=== PATIENT | female | born 1970 | race American Indian/Alaskan Native ===

== ENCOUNTER 2016-10-24 05:33 | Inpatient (IN) | payer MEDICAID, OTHER ==
[2016-10-24] MEDS ORDERED: Albuterol/Ipratropium 3.0-0.5 MG/3 ML Neb Soln NEB ONE (05:40)
--- NOTE | 2016-10-24 05:49 | EDM.PDOC ---
ED HPI GENERAL MEDICAL PROBLEM - General Chief Complaint: Respiratory Problem Stated Complaint: IN BY AMBULANCE Time Seen by Provider: 10/24/16 05:47 Source of Information: Reports: Patient History Limitations: Reports: No Limitations - History of Present Illness INITIAL COMMENTS - FREE TEXT/NARRATIVE: c/o SOB emanuel developed chest pain en route to ER. h/o asthma tried neb at home but not helping. quit smoking 2 months ago. Left Chest Pain Score (Numeric/FACES): 8 - Related Data Allergies Allergy/AdvReac Type Severity Reaction Status Date / Time Penicillins Allergy Unknown Rash Verified 10/24/16 06:07 codeine Allergy Vomiting Verified 10/24/16 06:07 ibuprofen Allergy Rash Verified 10/24/16 06:07 Home Meds: Home Meds Albuterol Sulfate 2.5 mg IH Q4HR PRN 03/15/14 [History] Lisinopril 20 mg PO DAILY 03/15/14 [History] Omeprazole 20 mg PO BID 03/15/14 [History] metFORMIN [Glucophage] 500 mg PO BID 03/15/14 [History] Aspirin [Ecotrin] 81 mg PO DAILY 09/09/15 [History] Calcium Carbonate [Calcium] 500 mg PO DAILY 09/09/15 [History] Gabapentin [Neurontin] 300 mg PO TID 09/09/15 [History] Montelukast Sodium [Singulair] 10 mg PO DAILY 09/09/15 [History] [place]-3 Fatty Acids [Fish Oil] 300 mg PO DAILY 10/24/16 [History] Past Medical History HEENT History: Reports: Allergic Rhinitis Cardiovascular History: Reports: Hypertension Respiratory History: Reports: Asthma Other Respiratory History: seasonal allergies [employer] History: Reports: Musculoskeletal History: Reports: Fibromyalgia, RA Other Musculoskeletal History: carpal tunnel Neurological History: Reports: Neuropathy, Diabetic Psychiatric History: Reports: None Endocrine/Metabolic History: Reports: Diabetes, Type I Hematologic History: Reports: None Immunologic History: Reports: None - Infectious Disease History Infectious Disease History: Reports: Chicken Pox - Past Surgical History Female Surgical History: Reports: Section Musculoskeletal Surgical History: Reports: Carpal Tunnel Social & Family History - Family History Family Medical History: Noncontributory - Tobacco Use Smoking Status *Q: Never Smoker Years of Tobacco use: 1 Packs/Tins Daily: 0.1 - Caffeine Use Caffeine Use: Reports: Coffee, Soda - Alcohol Use Days Per Week of Alcohol Use: 0 - Recreational Drug Use Recreational Drug Use: No - Living Situation & Occupation Living situation: Reports: , with Family Occupation: Employed ED ROS GENERAL - Review of Systems Review Of Systems: ROS reveals no pertinent complaints other than HPI. ED EXAM, GENERAL - Physical Exam Exam: See Below Exam Limited By: No Limitations General Appearance: Alert, WD/WN, No Apparent Distress, Mild Distress, Other ( cough spasms) Ears: Hearing Grossly Normal Throat/Mouth: Normal Voice, No Airway Compromise Head: Atraumatic Neck: Non-Tender, Full Range of Motion Respiratory/Chest: No Respiratory Distress, No Accessory Muscle Use, Decreased Breath Sounds, Rhonchi, Wheezing. No: Retractions, Splinting Cardiovascular: Regular Rate, Rhythm GI/Abdominal: Soft, Non-Tender Neurological: Alert, Oriented, Normal Cognition, Normal Gait, No Motor/Sensory Deficits Psychiatric: Normal Affect, Normal Mood Skin Exam: Warm, Dry Lymphatic: No Adenopathy Course - Vital Signs Last Recorded V/S: Last Vital Signs Temp 37.6 C 10/24/16 05:37 Pulse 121 H 10/24/16 05:37 Resp 36 H 10/24/16 05:37 BP 150/94 H 10/24/16 05:37 Pulse Ox 99 10/24/16 05:37 - Orders/Labs/Meds Orders: Active Orders 24 hr Category Date Time Status EKG Documentation Completion [RC] STAT Care 10/24/16 05:40 Active RT Aerosol Therapy [RC] ASDIRECTED Care 10/24/16 05:40 Active Chest 1V Frontal [CR] Urgent Exams 10/24/16 05:40 Taken CULTURE BLOOD [BC] Stat Lab 10/24/16 05:50 Received UA W/MICROSCOPIC [URIN] Stat Lab 10/24/16 06:54 Uncollected Levofloxacin/Dextrose 5%-Water [Levaquin in D5W 500 MG/ Med 10/24/16 06:53 Ordered 100 ML] 500 mg Premix Bag 1 bag IV ONETIME Medication Orders Levofloxacin/Dextrose 500 mg/ (Premix) 100 mls @ 100 mls/hr IV ONETIME ONE Stop: 10/24/16 07:52 Labs: Laboratory Tests 10/24/16 10/24/16 10/24/16 Range/Units 05:50 05:50 05:50 WBC 29.0 H* (5.0-10.0) 10^3/uL RBC 4.77 (4.2-5.4) 10^6/uL Hgb 12.2 (12.0-16.0) g/dL Hct 38.0 (37.0-47.0) % MCV 79.7 L (80-100) fL MCH 25.6 L (27.0-34.0) pg MCHC 32.1 L (33.0-35.0) g/dL Plt Count 245 (150-450) 10^3/uL Neut % (Auto) 86.2 H (42.2-75.2) % Lymph % (Auto) 5.9 L (20.5-50.1) % [place] % (Auto) 7.8 (2-8) % Eos % (Auto) 0.1 L (1.0-3.0) % Baso % (Auto) 0.0 (0.0-1.0) % Add Manual Diff Yes Neutrophils % (Manual) 85 % Band Neutrophils % 4 % Lymphocytes % (Manual) 5 % Monocytes % (Manual) 6 % Sodium 136 (135-145) mmol/L Potassium 3.3 L (3.6-5.0) mmol/L Chloride 104 (101-111) mmol/L Carbon Dioxide 21.0 (21.0-31.0) mmol/L Anion Gap 14.3 BUN 29 H (7-18) mg/dL Creatinine 1.4 H (0.6-1.3) mg/dL Est Cr Clr Drug Dosing 54.93 mL/min Estimated GFR (MDRD) 40 BUN/Creatinine Ratio 20.71 Glucose 168 H (74-105) mg/dL Lactic Acid 1.6 (0.5-2.2) mmol/L Calcium 8.9 (8.4-10.2) mg/dl Total Bilirubin 0.7 (0.2-1.0) mg/dL AST 13 (10-42) IU/L ALT 12 (10-60) IU/L Alkaline Phosphatase 73 (42-121) IU/L Troponin I < 0.02 (0.00-0.02) ng/ml Total Protein 7.5 (6.7-8.2) g/dl Albumin 3.5 (3.2-5.5) g/dl Globulin 4.0 Albumin/Globulin Ratio 0.88 Meds: Medications Generic Name Dose Route Start Last Admin Trade Name Freq PRN Reason Stop Dose Admin Levofloxacin/Dextrose 500 mg/ 100 mls @ 100 mls/hr 10/24/16 06:53 Premix IV 10/24/16 07:52 ONETIME ONE Discontinued Medications Generic Name Dose Route Start Last Admin Trade Name Freq PRN Reason Stop Dose Admin Hydrocodone Bitart/Acetaminophen 1 tab 10/24/16 06:02 10/24/16 06:06 [place] 325-10 Mg PO 10/24/16 06:03 1 tab ONETIME ONE Administration Albuterol/Ipratropium 3 ml 10/24/16 05:40 10/24/16 05:45 Duoneb 3.0-0.5 Mg/3 Ml NEB 10/24/16 05:41 3 ml ONETIME ONE Administration Benzonatate 100 mg 10/24/16 05:50 10/24/16 05:55 Tessalon Perles PO 10/24/16 05:51 100 mg ONETIME ONE Administration Methylprednisolone Sodium Succinate 125 mg 10/24/16 05:50 10/24/16 05:55 Solu-Medrol IVPUSH 10/24/16 05:51 125 mg ONETIME ONE Administration - Re-Assessments/Exams Free Text/Narrative Re-Assessment/Exam: 10/24/16 06:10 s/p duoneb+Rx=better. nw wants something for her pain all over her body. 10/24/16 06:54 results discussed with Pt and case discussed with Dr Nava who kindly admitted Pt. Departure - Departure Time of Disposition: 06:55 Disposition: Admitted As Inpatient 64 Condition: good Clinical Impression: Dehydration syndrome, Pleuritic chest pain Asthma with status asthmaticus Qualifiers: Asthma severity: moderate persistent Qualified Code(s): J45.42 - Moderate persistent asthma with status asthmaticus Leukocytosis Qualifiers: Leukocytosis type: other Qualified Code(s): D72.828 - Other elevated white blood cell count - Discharge Information Forms: ED Department Discharge - My Orders Last 24 Hours: My Active Orders 10/24/16 05:40 EKG Documentation Completion [RC] STAT RT Aerosol Therapy [RC] ASDIRECTED Chest 1V Frontal [CR] Urgent 10/24/16 05:50 CULTURE BLOOD [BC] Stat 10/24/16 06:53 Levofloxacin/Dextrose 5%-Water [Levaquin in D5W 500 MG/100 ML] 500 mg Premix Bag 1 bag IV ONETIME 10/24/16 06:54 UA W/MICROSCOPIC [URIN] Stat - Assessment/Plan Last 24 Hours: My Active Orders 10/24/16 05:40 EKG Documentation Completion [RC] STAT RT Aerosol Therapy [RC] ASDIRECTED Chest 1V Frontal [CR] Urgent 10/24/16 05:50 CULTURE BLOOD [BC] Stat 10/24/16 06:53 Levofloxacin/Dextrose 5%-Water [Levaquin in D5W 500 MG/100 ML] 500 mg Premix Bag 1 bag IV ONETIME 10/24/16 06:54 UA W/MICROSCOPIC [URIN] Stat
[2016-10-24] MEDS ORDERED: methylPREDNISolone Sodium Succinate 125 MG/2 ML SDV IVPUSH ONE (05:50)
[2016-10-24] MEDS ORDERED: Benzonatate 100 MG Cap PO ONE (05:50)
[2016-10-24] MEDS ORDERED: Acetaminophen/HYDROcodone 325-10 MG Tab PO ONE (06:02)
[2016-10-24 06:15] LABS: CHLORIDE,CL 104 mmol/L (101-111); SODIUM,NA 136 mmol/L (135-145)
[2016-10-24] MEDS ORDERED: Levofloxacin/Dextrose 5%-Water 500 MG in Premix Bag 1 BAG IV ONE (06:53)
[2016-10-24] MEDS: Sodium Chloride 0.9% 1,000 ML IV SCH ×2 (09:00→22:12)
[2016-10-24] MEDS ORDERED: Acetaminophen 325 MG Tab PO PRN (09:34)
[2016-10-24] MEDS ORDERED: Magnesium Hydroxide 400 MG/5 ML Susp 30 ML Cup PO PRN (09:34)
[2016-10-24] MEDS ORDERED: Ondansetron 4 MG/2 ML SDV IVPUSH PRN (09:34)
[2016-10-24] MEDS ORDERED: Docusate Sodium 100 MG Cap PO PRN (09:34)
[2016-10-24] MEDS ORDERED: 50% Dextrose in Water 50 ML Syringe IVPUSH PRN (09:42)
[2016-10-24] MEDS: Potassium Chloride 10 MEQ Tab.ER PO SCH ×2 (10:06→17:28)
[2016-10-24] MEDS: Acetaminophen/HYDROcodone 325-5 MG Tab PO PRN ×3 (10:07→23:44)
[2016-10-24] MEDS: Enoxaparin 40 MG/0.4 ML Syringe SUBCUT SCH (10:08)
[2016-10-24] MEDS: Insulin Aspart 100 Units/ML 3 ML Pen SUBCUT SCH ×4 (10:08→21:04)
--- NOTE | 2016-10-24 11:40 | US ---
CLINICAL HISTORY: 46 year old obese diabetic female with pain and swelling left lower extremity ("ki cked barn door" one week ago). Rule out DVT this patient who has a history of "blood clots". INTERPRETATION: Negative. No sign of intraluminal echogenic thrombus and normal compressibility deep veins of both groins, thi ghs and knees. Satisfactory augmentation and venous waveform identified respectively in the veins of both calves, p osterior tibial veins of the knees and proximal and both lower extremities. No Nava's cyst. CONCLUSION: No current evidence deep vein thrombosis either lower extremity.
[2016-10-24] MEDS: Albuterol/Ipratropium 3.0-0.5 MG/3 ML Neb Soln NEB SCH ×4 (11:52→22:31)
[2016-10-24] MEDS: Gabapentin 300 MG Cap PO SCH ×2 (13:45→20:54)
[2016-10-24] MEDS: methylPREDNISolone Sodium Succinate 40 MG/1 ML SDV IVPUSH SCH ×2 (13:46→22:27)
--- NOTE | 2016-10-24 13:57 | HP ---
CHIEF COMPLAINT: Shortness of breath. HISTORY OF PRESENTING ILLNESS: Mrs. Jose Garcia is a 46-year-old female with medical history significant for hypertension, hyperlipidemia, type 2 diabetes mellitus, Maged's thyroiditis, hypothyroidism, obesity, history of asthma, and history of chronic tobacco use in the past quit smoking since July of this year. History of alcohol intake in the past, but quit drinking 2 years back presented to the ER with complaints of increasing shortness of breath and was noted to be in acute asthma exacerbation. At this time, patient complains having increasing shortness of breath for the last 3-4 days which has been progressively getting worse. She grades the shortness of breath as 7/10 in intensity, which gets aggravated on exertion, relieved with rest, associated with mild chest pain which is mostly in the anterior chest, aggravated on deep breathing and coughing, relieved with medications. Also associated with cough which is dry in nature. She was bringing up some whitish pinkish phlegm few days back. She also had 1 episode of vomiting earlier today, which was bilious stained secondary to the cough. Denied any sick contacts. No history of recent travel. No complaints of abdominal pain. No complaints of diarrhea. She complains of lower extremity pains. The patient denied any history of chest pains on exertion, but has dyspnea on exertion. No history of orthopnea or paroxysmal nocturnal dyspnea. The patient denied any history of hematemesis, hematochezia, or melenic stools. Normal bowel and bladder habits otherwise. REVIEW OF SYSTEMS: A complete review of system including skin, ear, nose, and throat, cardiovascular system, respiratory system, gastrointestinal system, genitourinary system, hematology, oncology, neurology, allergy, immunology, endocrinology, constitutional were all evaluated and were negative except for the above-said notes. PAST MEDICAL HISTORY: Significant for hypertension, hyperlipidemia, type 2 diabetes mellitus, Maged's thyroiditis, hypothyroidism, obesity, history of tobacco use in the past, history of alcohol use in the past, history of DVT in the past x2. Not on any anticoagulation at this time. PAST SURGICAL HISTORY: Significant for and D and C in the past, status post cholecystectomy. FAMILY HISTORY: Significant for hypertension, diabetes, hyperlipidemia, and coronary artery disease in both her parents. History of cancer in her mother. SOCIAL HISTORY: Quit smoking since July 2016. Alcohol history, quit drinking 2 years back. No history of drug use as per the patient. ALLERGIES: The patient is noted to have allergies to ibuprofen and codeine. PHYSICAL EXAMINATION: Vital signs: Temperature of 97, pulse of 99, blood pressure of 94/43, and saturating at 98% on room air. General Appearance: The patient is well oriented to time, place, and person. Follows commands spontaneously. Cardiovascular System: S1, S2 heard with normal intensity. No gallops. Respiratory System: Bilateral wheeze noted. No stridor. Mild crepitations at the bases. Abdomen: Soft. Bowel sounds positive. Nontender. No rigidity. No guarding. No rebound tenderness. Extremities: No edema bilateral lower extremities. The patient complains of tenderness to the left knee. Neurology: No gross focal neurological deficits. Skin: No acute rash noted. HOME MEDICATIONS: Include: 1. [place]-3 fatty acid 300 mg daily. 2. Calcium carbonate 500 mg daily. 3. Aspirin 81 mg daily. 4. Albuterol 2.5 inhalation 4 times as needed. 5. Montelukast Singulair 10 mg daily. 6. Neurontin 300 mg 3 times a day. 7. Metformin 500 mg twice a day. 8. Omeprazole 20 mg twice a day. 9. Lisinopril 20 mg daily. LABORATORY DATA: WBC 29, hemoglobin 12.2, hematocrit 38, and platelet count 245. Sodium 136, potassium 3.3, chloride 104, bicarb 21, BUN 29, creatinine 1.4, glucose 168, lactic acid 1.6, AST 13, ALT 12, and alkaline phosphatase 73. Urinalysis suggestive of small bilirubin, moderate leukocyte esterase, 10-20 rbc's, wbc's greater than 100, epithelial cells moderate. Many bacteria. ASSESSMENT: 1. Acute asthma exacerbation. 2. Urinary tract infection. 3. Possible sepsis. 4. Hypertension. 5. Hyperlipidemia. 6. Type 2 diabetes mellitus. 7. History of deep venous thrombosis in the past. 8. Hypothyroidism. 9. Obesity. PLAN: 1. Acute asthma exacerbation. The patient presents with increasing shortness of breath. She is noted to have bilateral wheeze. The patient will be admitted to the hospital. We will have her on DuoNeb nebulizer and Pulmicort nebulizer. We will start her on IV methylprednisone. We will give her magnesium 2 g IV and we will use supplemental oxygen as needed to maintain a saturation of greater than 95%. We will closely follow. 2. Urinary tract infection. The patient is noted to have UTI. She is complaining of having fevers and chills and noted to have a temperature at home. We will obtain urine cultures and blood cultures. Started on IV Levaquin, we will continue the same. She claims that she is allergic to penicillin. We will closely follow the culture reports and titrate the antibiotics once we have the culture reports available. 3. Hypertension. The patient noted to be hypotensive, avoid any antihypertensive medications. Hold the lisinopril, keep her hydrated with IV fluids. Resume the lisinopril once she is more stable. 4. Hypokalemia. The patient noted to have potassium of 3.4, we will replace with oral potassium chloride. Recheck a basic metabolic panel in a.m. 5. Possible sepsis. The patient is noted to have leukocytosis and is claiming of having fevers at home. She is tachypneic and with underlying urinary tract infection one needs to think of possible sepsis. Her initial lactic acid is within normal limits. We will recheck a lactic acid in the next 6- 8 hours of time. 6. DVT prophylaxis. The patient had history of DVT in the past. She is complaining of lower extremity pain and suggesting that she had the same pain when she had the DVT. She is not on any Coumadin. We will obtain an ultrasound Doppler of the lower extremities and we will closely follow. For now, we will have her on Lovenox for DVT prophylaxis. 7. Code status. The patient wants to be full code. 8. Discussed with Dr. Jo physician, regarding the plan of care. Discussed with the patient regarding the treatment plans and goals. 9. Reviewed the labs and medications. Reviewed the old charts. [facility] /[id number]
[2016-10-24] MEDS ORDERED: Sodium Chloride 0.9% 500 ML IV SCH (15:30)
[2016-10-24] MEDS ORDERED: Magnesium Sulfate/D5W 2 GM in Premix Bag 1 BAG IV ONE (16:15)
--- NOTE | 2016-10-24 16:45 | EKG ---
10/24/2016 - EMILY MENDES - 12-lead EKG shows normal sinus rhythm with sinus tachycardia. Nonspecific ST-T wave changes noted on lead V1, V2, and V3. Probable left atrial enlargement. [facility] /[id number]
[2016-10-24] MEDS: Omeprazole 20 MG Cap.CR PO SCH (17:06)
[2016-10-24] MEDS ORDERED: Insulin Aspart 100 Units/ML 3 ML Pen SUBCUT ONE ×2 (17:06→21:03)
[2016-10-24] MEDS: Budesonide 0.5 MG/2 ML Neb Susp NEB SCH (18:02)
[2016-10-24] MEDS ORDERED: Insulin Detemir 100 Units/ML 3 ML Pen SUBCUT SCH (21:00)
[2016-10-25] MEDS: Albuterol/Ipratropium 3.0-0.5 MG/3 ML Neb Soln NEB SCH ×6 (03:12→22:20)
[2016-10-25] MEDS ORDERED: Midodrine 2.5 MG Tab PO ONE (03:36)
[2016-10-25] MEDS ORDERED: Sodium Chloride 0.9% 500 ML IV SCH (03:45)
[2016-10-25] MEDS: Omeprazole 20 MG Cap.CR PO SCH ×2 (05:22→16:40)
[2016-10-25] MEDS: methylPREDNISolone Sodium Succinate 40 MG/1 ML SDV IVPUSH SCH ×3 (05:23→22:20)
[2016-10-25] MEDS: Levofloxacin/Dextrose 5%-Water 500 MG in Premix Bag 1 BAG IV SCH (05:24)
[2016-10-25] MEDS: Acetaminophen/HYDROcodone 325-5 MG Tab PO PRN ×3 (06:35→20:14)
[2016-10-25 07:00] LABS: CHLORIDE,CL 104 mmol/L (101-111); SODIUM,NA 135 mmol/L (135-145)
[2016-10-25] MEDS: Budesonide 0.5 MG/2 ML Neb Susp NEB SCH ×2 (07:07→18:04)
[2016-10-25] MEDS: Insulin Aspart 100 Units/ML 3 ML Pen SUBCUT SCH ×4 (08:18→21:01)
[2016-10-25] MEDS: Gabapentin 300 MG Cap PO SCH ×3 (08:20→20:14)
[2016-10-25] MEDS: Montelukast 10 MG Tab PO SCH (08:20)
[2016-10-25] MEDS: Aspirin 81 MG Tab.EC PO SCH (08:20)
[2016-10-25] MEDS: Calcium Carbonate 500 MG Tab.Chew PO SCH (08:21)
[2016-10-25] MEDS: Potassium Chloride 10 MEQ Tab.ER PO SCH ×2 (08:21→17:22)
[2016-10-25] MEDS: Midodrine 2.5 MG Tab PO SCH ×3 (08:22→16:39)
[2016-10-25] MEDS: Enoxaparin 40 MG/0.4 ML Syringe SUBCUT SCH (08:23)
[2016-10-25] MEDS ORDERED: Non-Formulary Medication 1 Each (Omega-3 Fatty Acids [Fish Oil] 300 MG) PO SCH (09:00)
[2016-10-25] MEDS: Sodium Chloride 0.9% 1,000 ML IV SCH ×2 (09:58→21:00)
[2016-10-25] MEDS ORDERED: Codeine/guaiFENesin 100-10 MG/5 ML Syrup 5 ML Cup PO PRN (10:21)
[2016-10-25] MEDS: diphenhydrAMINE 25 MG Tab PO PRN ×2 (10:52→20:15)
[2016-10-25] MEDS: guaiFENesin/Dextromethorphan 100-10 MG/5 ML Soln 5 ML Cup PO PRN ×2 (10:52→20:14)
--- NOTE | 2016-10-25 11:32 | PN ---
DATE: 10/25/2016 SUBJECTIVE: Mrs. Jose Garcia is a 46-year-old female with medical history significant for hypertension, hyperlipidemia, type 2 diabetes mellitus, Maged's thyroiditis, hypothyroidism, obesity, history of asthma, and chronic tobacco use in the past quit smoking in July of this year presented to the ER with complaints of increasing shortness of breath and was noted to be in acute asthma exacerbation. Also noted having urinary tract infection. Over the past 24 hours, the patient was started on IV fluids. She continued to have low blood pressure with hypotensive episodes requiring fluid boluses. She received at least 2 times fluid bolus, 500 mL each. She was started on midodrine. She continues to have cough and she continues to be short of breath this morning, though slightly improved from yesterday. She denies any chest pains. No abdominal pain. No nausea. No vomiting. No diarrhea. REVIEW OF SYSTEMS: Cardiovascular, respiratory, gastrointestinal, neurology, constitutional were all evaluated. PHYSICAL EXAMINATION: Vital signs: Temperature of 97.5, pulse of 79, blood pressure 105/60, respiratory rate of 20, saturating at 97% on 2 L of oxygen. General Appearance: The patient is well oriented to time, place, and person. Follows commands spontaneously. Cardiovascular System: S1, S2 heard with normal intensity. No gallops. Respiratory System: Bilateral wheeze noted. Mild crepitations at the bases. Abdomen: Soft. Bowel sounds positive. Nontender. No rigidity. Extremities: No edema in bilateral lower extremities. Neurology: No gross focal neurological deficits. Skin: No acute rash noted. MEDICATIONS: Reviewed. 1. Continue with Tylenol 650 mg every 4 hours as needed for pain. 2. Eld[place] 325/5 mg every 6 hours as needed for severe pain. 3. DuoNeb 3 mL nebulizer every 4 hours. 4. Aspirin 81 mg daily. 5. Azactam 1 g q.12 hourly. 6. Pulmicort 0.5 mg nebulizer twice a day. 7. Calcium carbonate Tums 500 mg daily. 8. Docusate sodium 100 mg twice a day. 9. Lovenox 40 mg subcutaneous daily. 10.Neurontin 300 mg 3 times a day. 11.Robitussin DM 10 mL every 6 hours as needed for cough. 12.NovoLog supplemental scale. 13.Levemir 30 units at night. 14.Levofloxacin 500 mg daily. 15.Solu-Medrol 80 mg IV q.8 hourly. 16.Midodrine 5 mg 3 times a day. 17.Montelukast 10 mg daily. 18.Omeprazole 20 mg twice a day. 19.Potassium chloride 20 mEq twice a day. LABORATORY DATA: WBC 27.5, hemoglobin 9.4, hematocrit 30.0, and platelet count 221. Sodium 135, potassium 4.6, chloride 104, bicarb 22, BUN 33, creatinine 0.9, and glucose 355. Magnesium 2.2. TSH 0.30. ASSESSMENT: 1. Acute asthma exacerbation. 2. Urinary tract infection. 3. Possible sepsis. 4. Hypotensive episodes. 5. Type 2 diabetes mellitus, uncontrolled. 6. Maged's thyroiditis. 7. Obesity. 8. Acute hypoxia. 9. Hypokalemia. 10.Anemia. PLAN: 1. Acute asthma exacerbation. The patient was admitted with increasing shortness of breath and was noted to have wheeze bilaterally. She is started on IV methylprednisone, DuoNeb, and Pulmicort nebulizers. We will continue the same. She is noted to have increasing cough, we will prescribe Robitussin DM as needed for cough. We will have her on incentive spirometer and flutter valve for better pulmonary toileting. We will closely follow. The patient had history of smoking in the past, but quit smoking since July of this year. 2. Urinary tract infection. The patient's urine culture is positive for E. coli and group B Streptococcus. We will follow with the susceptibility. We will add Azactam. She was started on Levaquin at the time of admission. She continued to have low blood pressure, so we will add Azactam until we have the susceptibility on the culture reports and titrate the antibiotics once we have the culture reports available. 3. Acute hypoxia. The patient is requiring around 1-2 L of nasal cannula oxygen. This could be resulting from her underlying asthma exacerbation, continue supplemental oxygen to maintain a saturation of 95%. Continue with nebulizers and steroids. 4. Acute hypokalemia. The patient was noted to have potassium of 3.3 at the time of admission, which got improved to 4.6. 5. Sepsis. The patient was noted to have leukocytosis, tachycardia, tachypnea, and she was claiming having fevers at home consistent with possible sepsis with underlying urinary tract infection. She is currently on Levaquin, added Azactam last night. We will follow with ID and susceptibility. She is growing E. coli and group B Streptococcus in the urine culture. 6. Hypertension. The patient was noted to have hypotensive episodes. Avoid any antihypertensive medications. Continue with IV fluids for now. 7. Maged's thyroiditis. The patient's TSH is borderline low at 0.30, we will check a T4 and T3 when she is more stable. No indication for thyroid replacement therapy at this time. 8. Type 2 diabetes mellitus, uncontrolled. The patient noted to have elevated blood sugars. This is mainly resulting from her steroid dosing. We will have her on insulin regimen. Started her on Levemir. I will increase the Levemir to 30 units tonight and continue supplemental scale insulin as needed for additional coverage of her blood glucose. We will get a hemoglobin A1c in a.m. 9. DVT prophylaxis. Continue with Lovenox for DVT prophylaxis. The patient had history of DVT in the past and repeat ultrasound on this admission did not show any evidence of DVT. Continue with Lovenox prophylactic dose. [facility] /[id number]
[2016-10-25] MEDS ORDERED: Zolpidem 5 MG Tab PO PRN (19:03)
[2016-10-25] MEDS: Insulin Detemir 100 Units/ML 3 ML Pen SUBCUT SCH (21:01)
[2016-10-26] MEDS: Albuterol/Ipratropium 3.0-0.5 MG/3 ML Neb Soln NEB SCH ×6 (02:07→23:10)
[2016-10-26] MEDS: guaiFENesin/Dextromethorphan 100-10 MG/5 ML Soln 5 ML Cup PO PRN ×3 (02:08→16:17)
[2016-10-26] MEDS: Acetaminophen/HYDROcodone 325-5 MG Tab PO PRN ×4 (02:08→23:10)
[2016-10-26] MEDS ORDERED: Sodium Chloride 0.65% Nasal Spray 45 ML Bottle NAS PRN (02:18)
[2016-10-26] MEDS: LORazepam 1 MG Tab PO PRN ×3 (02:49→21:31)
[2016-10-26] MEDS: Omeprazole 20 MG Cap.CR PO SCH ×2 (05:57→17:37)
[2016-10-26] MEDS: methylPREDNISolone Sodium Succinate 40 MG/1 ML SDV IVPUSH SCH ×3 (05:58→23:05)
[2016-10-26] MEDS: Levofloxacin/Dextrose 5%-Water 500 MG in Premix Bag 1 BAG IV SCH (05:58)
[2016-10-26 07:21] LABS: CHLORIDE,CL 109 mmol/L (101-111); SODIUM,NA 138 mmol/L (135-145)
[2016-10-26] MEDS: Budesonide 0.5 MG/2 ML Neb Susp NEB SCH ×2 (08:10→18:05)
[2016-10-26] MEDS: Insulin Aspart 100 Units/ML 3 ML Pen SUBCUT SCH ×4 (08:39→21:34)
[2016-10-26] MEDS: Enoxaparin 40 MG/0.4 ML Syringe SUBCUT SCH (08:43)
[2016-10-26] MEDS: Calcium Carbonate 500 MG Tab.Chew PO SCH (08:47)
[2016-10-26] MEDS: Potassium Chloride 10 MEQ Tab.ER PO SCH ×2 (08:48→17:38)
[2016-10-26] MEDS: Gabapentin 300 MG Cap PO SCH ×3 (08:49→21:31)
[2016-10-26] MEDS: Aspirin 81 MG Tab.EC PO SCH (08:49)
[2016-10-26] MEDS: Montelukast 10 MG Tab PO SCH (08:50)
[2016-10-26] MEDS: Midodrine 2.5 MG Tab PO SCH ×3 (08:51→17:43)
[2016-10-26] MEDS: Sodium Chloride 0.9% 1,000 ML IV SCH ×2 (09:37→20:50)
--- NOTE | 2016-10-26 10:25 | PCM.PN ---
- General Info Date of Service: 10/26/16 Admission Dx/Problem (Free Text): sepsis, uti, acute asthma exacerbation Subjective Update: feeling better, Over night could not sleep Last shortness of breath but still has limited activity tolerance. She is still on 1 L per minute nasal cannula oxygen. no chest pain, no fever Blood sugars have been elevated Still coughing - Review of Systems General: Denies: Fever Pulmonary: Reports: shortness of breath Cardiovascular: Denies: Chest Pain Gastrointestinal: Denies: Abdominal pain Neurological: Denies: Confusion - Patient Data Vitals - most recent: Last Vital Signs Temp 36.7 C 10/26/16 09:25 Pulse 84 10/26/16 09:25 Resp 20 10/26/16 07:23 BP 135/89 10/26/16 09:25 Pulse Ox 20 L 10/26/16 09:25 Weight - most recent: 114.033 kg I&O - last 24 hours: Intake & Output 10/25/16 10/26/16 10/26/16 22:59 06:59 14:59 Intake Total 400 1100 Output Total 300 Balance 100 1100 Lab Results last 24 hrs: Laboratory Results - last 24 hr 10/24/16 10/25/16 10/25/16 Range/Units 19:00 06:31 06:31 WBC (5.0-10.0) 10^3/uL RBC (4.2-5.4) 10^6/uL Hgb (12.0-16.0) g/dL Hct (37.0-47.0) % MCV (80-100) fL MCH (27.0-34.0) pg MCHC (33.0-35.0) g/dL Plt Count (150-450) 10^3/uL Sodium (135-145) mmol/L Potassium (3.6-5.0) mmol/L Chloride (101-111) mmol/L Carbon Dioxide (21.0-31.0) mmol/L Anion Gap BUN (7-18) mg/dL Creatinine (0.6-1.3) mg/dL Est Cr Clr Drug Dosing mL/min Estimated GFR (MDRD) Glucose (74-105) mg/dL POC Glucose (70-105) mg/dl Calcium (8.4-10.2) mg/dl Vitamin B12 272 (180-914) pg/mL Folate 13.5 ng/mL Cortisol 5.1 ug/dL 10/25/16 10/25/16 10/25/16 Range/Units 11:12 16:41 20:41 WBC (5.0-10.0) 10^3/uL RBC (4.2-5.4) 10^6/uL Hgb (12.0-16.0) g/dL Hct (37.0-47.0) % MCV (80-100) fL MCH (27.0-34.0) pg MCHC (33.0-35.0) g/dL Plt Count (150-450) 10^3/uL Sodium (135-145) mmol/L Potassium (3.6-5.0) mmol/L Chloride (101-111) mmol/L Carbon Dioxide (21.0-31.0) mmol/L Anion Gap BUN (7-18) mg/dL Creatinine (0.6-1.3) mg/dL Est Cr Clr Drug Dosing mL/min Estimated GFR (MDRD) Glucose (74-105) mg/dL POC Glucose 373 H 391 H 354 H (70-105) mg/dl Calcium (8.4-10.2) mg/dl Vitamin B12 (180-914) pg/mL Folate ng/mL Cortisol ug/dL 10/26/16 10/26/16 10/26/16 Range/Units 06:28 06:28 07:45 WBC 20.3 H (5.0-10.0) 10^3/uL RBC 3.53 L (4.2-5.4) 10^6/uL Hgb 9.1 L (12.0-16.0) g/dL Hct 28.8 L (37.0-47.0) % MCV 81.6 (80-100) fL MCH 25.8 L (27.0-34.0) pg MCHC 31.6 L (33.0-35.0) g/dL Plt Count 249 (150-450) 10^3/uL Sodium 138 (135-145) mmol/L Potassium 4.4 (3.6-5.0) mmol/L Chloride 109 (101-111) mmol/L Carbon Dioxide 20.0 L (21.0-31.0) mmol/L Anion Gap 13.4 BUN 27 H (7-18) mg/dL Creatinine 0.7 (0.6-1.3) mg/dL Est Cr Clr Drug Dosing 109.85 mL/min Estimated GFR (MDRD) > 60 Glucose 276 H (74-105) mg/dL POC Glucose 241 H (70-105) mg/dl Calcium 8.8 (8.4-10.2) mg/dl Vitamin B12 (180-914) pg/mL Folate ng/mL Cortisol ug/dL Med Orders - Current: Current Medications Acetaminophen (Tylenol) 650 mg PO Q4H PRN PRN Reason: Pain (Mild 1-3)/fever Hydrocodone Bitart/Acetaminophen ([place] 325-5 Mg) 1 tab PO Q6H PRN PRN Reason: Pain (severe 7-10) Last Admin: 10/26/16 10:04 Dose: 1 tab Albuterol/Ipratropium (Duoneb 3.0-0.5 Mg/3 Ml) 3 ml NEB Q4HRRT [facility] Last Admin: 10/26/16 08:09 Dose: 3 ml Aspirin (Halfprin) 81 mg PO DAILY [facility] Last Admin: 10/26/16 08:49 Dose: 81 mg Budesonide (Pulmicort) 0.5 mg NEB BIDRT [facility] Last Admin: 10/26/16 08:10 Dose: 0.5 mg Calcium Carbonate/Glycine (Tums) 500 mg PO DAILY [facility] Last Admin: 10/26/16 08:47 Dose: 500 mg Dextrose/Water (Dextrose 50% In Water) 50 ml IVPUSH ONETIME PRN PRN Reason: Hypoglycemia Diphenhydramine HCl (Benadryl) 25 mg PO QID PRN PRN Reason: Itching Last Admin: 10/25/16 20:15 Dose: 25 mg Docusate Sodium (Colace) 100 mg PO BID PRN PRN Reason: Constipation Last Admin: 10/24/16 10:07 Dose: 100 mg Enoxaparin Sodium (Lovenox) 40 mg SUBCUT DAILY [facility] Last Admin: 10/26/16 08:43 Dose: 40 mg Gabapentin (Neurontin) 300 mg PO TID [facility] Last Admin: 10/26/16 08:49 Dose: 300 mg Guaifenesin/Phenylephrine HCl (Robitussin Dm) 10 ml PO Q6H PRN PRN Reason: Cough Last Admin: 10/26/16 10:07 Dose: 10 ml Sodium Chloride (Normal Saline) 1,000 mls @ 100 mls/hr IV ASDIRECTED [facility] Last Admin: 10/26/16 09:37 Dose: 100 mls/hr Levofloxacin/Dextrose 500 mg/ (Premix) 100 mls @ 100 mls/hr IV Q24H [facility] Last Admin: 10/26/16 05:58 Dose: 100 mls/hr Aztreonam 1 gm/ Sodium (Chloride) 50 mls @ 100 mls/hr IV Q12H [facility] Last Admin: 10/26/16 09:37 Dose: 100 mls/hr Insulin Aspart (Novolog) 0 unit SUBCUT ACBED [facility] PRN Reason: Protocol Last Admin: 10/26/16 08:39 Dose: 4 units Insulin Detemir (Levemir) 30 unit SUBCUT 2100 [facility] Last Admin: 10/25/16 21:01 Dose: 30 units Lorazepam (Ativan) 1 mg PO Q6H PRN PRN Reason: Anxiety Last Admin: 10/26/16 10:06 Dose: 1 mg Magnesium Hydroxide (Milk Of Magnesia) 30 ml PO Q12H PRN PRN Reason: Constipation Methylprednisolone Sodium Succinate (Solu-Medrol) 80 mg IVPUSH Q8HR [facility] Last Admin: 10/26/16 05:58 Dose: 80 mg Midodrine (Midodrine) 2.5 mg PO TIDAC [facility] Montelukast Sodium (Singulair) 10 mg PO DAILY [facility] Last Admin: 10/26/16 08:50 Dose: 10 mg Omeprazole (Omeprazole) 20 mg PO BIDAC [facility] Last Admin: 10/26/16 05:57 Dose: 20 mg Ondansetron HCl (Zofran) 4 mg IVPUSH Q4H PRN PRN Reason: Nausea/Vomiting Last Admin: 10/24/16 11:57 Dose: 4 mg Potassium Chloride (Klor-Con 10) 20 meq PO BIDMEALS [facility] Last Admin: 10/26/16 08:48 Dose: 20 meq Sodium Chloride (Saline Flush) 10 ml FLUSH ASDIRECTED PRN PRN Reason: Keep Vein Open Sodium Chloride ([place] Nasal [place]) 0 ml VU Q2H PRN PRN Reason: dry nose Last Admin: 10/26/16 02:50 Dose: 1 spray Discontinued Medications Hydrocodone Bitart/Acetaminophen ([place] 325-10 Mg) 1 tab PO ONETIME ONE Stop: 10/24/16 06:03 Last Admin: 10/24/16 06:06 Dose: 1 tab Albuterol/Ipratropium (Duoneb 3.0-0.5 Mg/3 Ml) 3 ml NEB ONETIME ONE Stop: 10/24/16 05:41 Last Admin: 10/24/16 05:45 Dose: 3 ml Benzonatate (Tessalon Perles) 100 mg PO ONETIME ONE Stop: 10/24/16 05:51 Last Admin: 10/24/16 05:55 Dose: 100 mg Guaifenesin/Codeine Phosphate (Robitussin Ac) 5 ml PO Q6H PRN PRN Reason: Cough Last Admin: 10/25/16 10:30 Dose: 5 ml Levofloxacin/Dextrose 500 mg/ (Premix) 100 mls @ 100 mls/hr IV ONETIME ONE Stop: 10/24/16 07:52 Last Admin: 10/24/16 07:01 Dose: 100 mls/hr Sodium Chloride (Normal Saline) 500 mls @ 999 mls/hr IV .BOLUS [facility] Last Infusion: 10/24/16 16:15 Dose: Infused Magnesium Sulfate/Dextrose 2 (gm/ Premix) 200 mls @ 100 mls/hr IV ONETIME ONE Stop: 10/24/16 18:14 Last Infusion: 10/24/16 18:30 Dose: Infused Sodium Chloride (Normal Saline) 500 mls @ 999 mls/hr IV .BOLUS [facility] Last Admin: 10/25/16 03:54 Dose: 999 mls/hr Insulin Aspart (Novolog) 16 unit SUBCUT ONETIME ONE Stop: 10/24/16 17:07 Last Admin: 10/24/16 17:26 Dose: 16 units Insulin Aspart (Novolog) 15 unit SUBCUT ONETIME ONE Stop: 10/24/16 21:04 Last Admin: 10/24/16 21:13 Dose: 15 units Insulin Detemir (Levemir) 20 unit SUBCUT 2100 [facility] Last Admin: 10/24/16 20:52 Dose: 20 units Methylprednisolone Sodium Succinate (Solu-Medrol) 125 mg IVPUSH ONETIME ONE Stop: 10/24/16 05:51 Last Admin: 10/24/16 05:55 Dose: 125 mg Midodrine (Midodrine) 10 mg PO ONETIME ONE Stop: 10/25/16 03:37 Last Admin: 10/25/16 03:51 Dose: 10 mg Midodrine (Midodrine) 5 mg PO TIDAC [facility] Last Admin: 10/26/16 08:51 Dose: 5 mg Non-Formulary Medication ([place]-3 Fatty Acids [Fish Oil]) 300 mg PO DAILY [facility] Last Admin: 10/25/16 16:23 Dose: Not Given Zolpidem Tartrate (Ambien) 5 mg PO BEDTIME PRN PRN Reason: Sleep Last Admin: 10/25/16 20:14 Dose: 5 mg - Exam Quality Assessment: supplemental oxygen General: alert, oriented Neck: supple Lungs: Clear to auscultation, Normal respiratory effort. No: Rhonchi, Wheezing Cardiovascular: Regular Rate, Regular Rhythm Abdomen: bowel sounds present, soft, no tenderness, no distension Extremities: no edema Skin: warm, dry, intact Neurological: no new focal deficit Psy/Mental Status: alert, normal mood, anxious - Problem List & Annotations (1) UTI (urinary tract infection) SNOMED Code(s): 71767942 Code(s): N39.0 - URINARY TRACT INFECTION, SITE NOT SPECIFIED Status: Acute Current Visit: Yes (2) Sepsis SNOMED Code(s): 96730707 Code(s): A41.9 - SEPSIS, UNSPECIFIED ORGANISM Status: Acute Current Visit : Yes (3) Acute asthma SNOMED Code(s): 531084346 Code(s): J45.909 - UNSPECIFIED ASTHMA, UNCOMPLICATED Status: Acute Current Visit: No - Problem List Review Problem List Initiated/Reviewed/Updated: Yes - My Orders Last 24 Hours: My Active Orders 10/26/16 02:18 Sodium Chloride 0.65% [[place] Nasal [place]] 0 ml VU Q2H PRN 10/26/16 02:19 LORazepam [Ativan] 1 mg PO Q6H PRN 10/26/16 13:00 Midodrine 2.5 mg PO TIDAC 10/26/16 Lunch Regular Diet [DIET] 10/27/16 05:15 BASIC METABOLIC PANEL,BMP [CHEM] AM CBC WITH AUTO DIFF [HEME] AM - Assessment Assessment:: The patient is a 46-year-old lady with a history of hypertension, dyslipidemia, diabetes, 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 Presented with shortness of breath. She was noted to have sepsis on admission with hypotension, infection. The patient was admitted and has been treated for UTI and acute hypoxemic respiratory failure due to take a COPD exacerbation. She is improved but still getting short of breath with walking. She is still on 1 L nasal cannula oxygen. She is complaining that she does not want diabetic restrictions on her meals. 1. Acute asthma exacerbation The patient is admitted with increasing shortness of breath and noted to have bilateral wheezing. She is improved on today's physical examination Will treat with IV steroids, Pulmicort nebulizer, DuoNeb Leukocytosis is likely related to the steroids and infection combination 2. Acute hypoxemic respiratory failure The patient is still on 1 L nasal cannula oxygen Will try to taper it further Encourage activity and monitor oxygen saturations with activity 3. Hypotension due to Sepsis due to Urinary tract infection Hypotension has improved with midodrine - the taper today to 2.5 mg 3 times a day Sepsis has resolved Urine culture grew Escherichia coli and group B. Streptococcus Blood cultures are negative Continue On azactam and levofloxacin 4. Hypothyroidism Will need outpatient followup 5. Hypokalemia Resolved Will follow electrolytes in the morning 6. Diabetes - uncontrolled She does not want restrictions on her diet Blood sugars are elevated likely due to steroids Will continue with increased Levemir 7. DVT prophylaxis with Lovenox 8. Discussed with Dr. Martino today
[2016-10-26] MEDS: Insulin Detemir 100 Units/ML 3 ML Pen SUBCUT SCH (21:36)
[2016-10-27] MEDS: methylPREDNISolone Sodium Succinate 40 MG/1 ML SDV IVPUSH SCH ×3 (06:21→22:07)
[2016-10-27] MEDS: Albuterol/Ipratropium 3.0-0.5 MG/3 ML Neb Soln NEB SCH ×6 (06:22→23:09)
[2016-10-27] MEDS: Levofloxacin/Dextrose 5%-Water 500 MG in Premix Bag 1 BAG IV SCH (06:23)
[2016-10-27] MEDS: Omeprazole 20 MG Cap.CR PO SCH ×2 (06:23→17:18)
[2016-10-27 07:00] LABS: CHLORIDE,CL 110 mmol/L (101-111); SODIUM,NA 138 mmol/L (135-145)
[2016-10-27] MEDS: Budesonide 0.5 MG/2 ML Neb Susp NEB SCH ×2 (07:57→17:18)
[2016-10-27] MEDS: Potassium Chloride 10 MEQ Tab.ER PO SCH ×2 (08:02→17:17)
[2016-10-27] MEDS: Midodrine 2.5 MG Tab PO SCH ×2 (08:03→11:11)
[2016-10-27] MEDS: Insulin Aspart 100 Units/ML 3 ML Pen SUBCUT SCH ×4 (08:26→21:48)
[2016-10-27] MEDS: Enoxaparin 40 MG/0.4 ML Syringe SUBCUT SCH (08:32)
[2016-10-27] MEDS: Aspirin 81 MG Tab.EC PO SCH (08:33)
[2016-10-27] MEDS: Montelukast 10 MG Tab PO SCH (08:34)
[2016-10-27] MEDS: Gabapentin 300 MG Cap PO SCH ×3 (08:34→22:00)
[2016-10-27] MEDS: Acetaminophen/HYDROcodone 325-5 MG Tab PO PRN ×2 (08:34→14:46)
[2016-10-27] MEDS: Calcium Carbonate 500 MG Tab.Chew PO SCH (08:37)
[2016-10-27] MEDS: Sodium Chloride 0.9% 1,000 ML IV SCH (09:13)
[2016-10-27] MEDS: guaiFENesin/Dextromethorphan 100-10 MG/5 ML Soln 5 ML Cup PO PRN ×3 (09:14→23:07)
[2016-10-27] MEDS: LORazepam 1 MG Tab PO PRN ×2 (09:50→21:59)
--- NOTE | 2016-10-27 12:02 | PCM.PN ---
- General Info Date of Service: 10/27/16 Admission Dx/Problem (Free Text): sepsis, uti, acute asthma exacerbation, acute bronchitis Subjective Update: feeling better, less shortness of breath but still has limited activity tolerance. She is off oxygen. no chest pain, no fever Blood sugars have been elevated Still coughing, small amount of blood tinged secretions mostly dry cough which is associated with chest pain she is able to talk in full sentences, has been up and walking on the corridor Functional Status: Reports: pain controlled - Review of Systems General: Reports: Weakness. Denies: Fever Pulmonary: Reports: shortness of breath, pleuritic chest pain, cough, hemoptysis (small amount). Denies: wheezing Cardiovascular: Denies: Edema Gastrointestinal: Denies: Abdominal pain Genitourinary: Denies: dysuria Neurological: Denies: Confusion - Patient Data Vitals - most recent: Last Vital Signs Temp 36.2 C 10/27/16 11:00 Pulse 77 10/27/16 11:00 Resp 20 10/27/16 11:00 BP 143/83 H 10/27/16 11:00 Pulse Ox 98 10/27/16 11:00 Weight - most recent: 114.033 kg I&O - last 24 hours: Intake & Output 10/26/16 10/27/16 10/27/16 22:59 06:59 14:59 Intake Total 1250 597 188 Output Total 1150 Balance 100 597 188 Lab Results last 24 hrs: Laboratory Results - last 24 hr 10/24/16 10/25/16 10/26/16 Range/Units 19:00 06:31 06:28 WBC (5.0-10.0) 10^3/uL RBC (4.2-5.4) 10^6/uL Hgb (12.0-16.0) g/dL Hct (37.0-47.0) % MCV (80-100) fL MCH (27.0-34.0) pg MCHC (33.0-35.0) g/dL Plt Count (150-450) 10^3/uL Neut % (Auto) (42.2-75.2) % Lymph % (Auto) (20.5-50.1) % Camp % (Auto) (2-8) % Eos % (Auto) (1.0-3.0) % Baso % (Auto) (0.0-1.0) % Add Manual Diff Neutrophils % (Manual) % Lymphocytes % (Manual) % Monocytes % (Manual) % Sodium (135-145) mmol/L Potassium (3.6-5.0) mmol/L Chloride (101-111) mmol/L Carbon Dioxide (21.0-31.0) mmol/L Anion Gap BUN (7-18) mg/dL Creatinine (0.6-1.3) mg/dL Est Cr Clr Drug Dosing mL/min Estimated GFR (MDRD) Glucose (74-105) mg/dL POC Glucose (70-105) mg/dl Estimat Average Glucose 125 mg/dl Hemoglobin A1c 6.0 (4.4-6.3) % Calcium (8.4-10.2) mg/dl Iron 16 L (35-145) ug/dL TIBC 266 (261-478) ug/dL Transferrin TNP Transferrin % Sat 6.0 L (20.0-50.0) % Ferritin 105 (11-307) ng/mL Cortisol TNP 10/26/16 10/26/16 10/27/16 Range/Units 16:55 20:50 06:16 WBC 9.8 (5.0-10.0) 10^3/uL RBC 3.71 L (4.2-5.4) 10^6/uL Hgb 9.3 L (12.0-16.0) g/dL Hct 30.5 L (37.0-47.0) % MCV 82.2 (80-100) fL MCH 25.1 L (27.0-34.0) pg MCHC 30.5 L (33.0-35.0) g/dL Plt Count 274 (150-450) 10^3/uL Neut % (Auto) 81.6 H (42.2-75.2) % Lymph % (Auto) 15.2 L (20.5-50.1) % [place] % (Auto) 3.1 (2-8) % Eos % (Auto) 0.0 L (1.0-3.0) % Baso % (Auto) 0.1 (0.0-1.0) % Add Manual Diff Yes Neutrophils % (Manual) 89 % Lymphocytes % (Manual) 8 % Monocytes % (Manual) 3 % Sodium (135-145) mmol/L Potassium (3.6-5.0) mmol/L Chloride (101-111) mmol/L Carbon Dioxide (21.0-31.0) mmol/L Anion Gap BUN (7-18) mg/dL Creatinine (0.6-1.3) mg/dL Est Cr Clr Drug Dosing mL/min Estimated GFR (MDRD) Glucose (74-105) mg/dL POC Glucose 248 H 268 H (70-105) mg/dl Estimat Average Glucose mg/dl Hemoglobin A1c (4.4-6.3) % Calcium (8.4-10.2) mg/dl Iron (35-145) ug/dL TIBC (261-478) ug/dL Transferrin Transferrin % Sat (20.0-50.0) % Ferritin (11-307) ng/mL Cortisol 10/27/16 10/27/16 Range/Units 06:16 08:05 WBC (5.0-10.0) 10^3/uL RBC (4.2-5.4) 10^6/uL Hgb (12.0-16.0) g/dL Hct (37.0-47.0) % MCV (80-100) fL MCH (27.0-34.0) pg MCHC (33.0-35.0) g/dL Plt Count (150-450) 10^3/uL Neut % (Auto) (42.2-75.2) % Lymph % (Auto) (20.5-50.1) % Camp % (Auto) (2-8) % Eos % (Auto) (1.0-3.0) % Baso % (Auto) (0.0-1.0) % Add Manual Diff Neutrophils % (Manual) % Lymphocytes % (Manual) % Monocytes % (Manual) % Sodium 138 (135-145) mmol/L Potassium 4.8 (3.6-5.0) mmol/L Chloride 110 (101-111) mmol/L Carbon Dioxide 21.0 (21.0-31.0) mmol/L Anion Gap 11.8 BUN 27 H (7-18) mg/dL Creatinine 0.7 (0.6-1.3) mg/dL Est Cr Clr Drug Dosing 109.85 mL/min Estimated GFR (MDRD) > 60 Glucose 222 H (74-105) mg/dL POC Glucose 196 H (70-105) mg/dl Estimat Average Glucose mg/dl Hemoglobin A1c (4.4-6.3) % Calcium 8.9 (8.4-10.2) mg/dl Iron (35-145) ug/dL TIBC (261-478) ug/dL Transferrin Transferrin % Sat (20.0-50.0) % Ferritin (11-307) ng/mL Cortisol Med Orders - Current: Current Medications Acetaminophen (Tylenol) 650 mg PO Q4H PRN PRN Reason: Pain (Mild 1-3)/fever Hydrocodone Bitart/Acetaminophen ([place] 325-5 Mg) 1 tab PO Q6H PRN PRN Reason: Pain (severe 7-10) Last Admin: 10/27/16 08:34 Dose: 1 tab Albuterol/Ipratropium (Duoneb 3.0-0.5 Mg/3 Ml) 3 ml NEB Q4HRRT [facility] Last Admin: 10/27/16 11:09 Dose: 3 ml Aspirin (Halfprin) 81 mg PO DAILY [facility] Last Admin: 10/27/16 08:33 Dose: 81 mg Budesonide (Pulmicort) 0.5 mg NEB BIDRT [facility] Last Admin: 10/27/16 07:57 Dose: 0.5 mg Calcium Carbonate/Glycine (Tums) 500 mg PO DAILY [facility] Last Admin: 10/27/16 08:37 Dose: 500 mg Dextrose/Water (Dextrose 50% In Water) 50 ml IVPUSH ONETIME PRN PRN Reason: Hypoglycemia Diphenhydramine HCl (Benadryl) 25 mg PO QID PRN PRN Reason: Itching Last Admin: 10/25/16 20:15 Dose: 25 mg Docusate Sodium (Colace) 100 mg PO BID PRN PRN Reason: Constipation Last Admin: 10/24/16 10:07 Dose: 100 mg Enoxaparin Sodium (Lovenox) 40 mg SUBCUT DAILY [facility] Last Admin: 10/27/16 08:32 Dose: 40 mg Gabapentin (Neurontin) 300 mg PO TID [facility] Last Admin: 10/27/16 08:34 Dose: 300 mg Guaifenesin/Phenylephrine HCl (Robitussin Dm) 10 ml PO Q6H PRN PRN Reason: Cough Last Admin: 10/27/16 09:14 Dose: 10 ml Levofloxacin/Dextrose 500 mg/ (Premix) 100 mls @ 100 mls/hr IV Q24H [facility] Last Admin: 10/27/16 06:23 Dose: 100 mls/hr Insulin Aspart (Novolog) 0 unit SUBCUT ACBED [facility] PRN Reason: Protocol Last Admin: 10/27/16 08:26 Dose: 2 units Insulin Detemir (Levemir) 30 unit SUBCUT 2100 [facility] Last Admin: 10/26/16 21:36 Dose: 30 units Lorazepam (Ativan) 1 mg PO Q6H PRN PRN Reason: Anxiety Last Admin: 10/27/16 09:50 Dose: 1 mg Magnesium Hydroxide (Milk Of Magnesia) 30 ml PO Q12H PRN PRN Reason: Constipation Methylprednisolone Sodium Succinate (Solu-Medrol) 40 mg IVPUSH Q8HR [facility] Montelukast Sodium (Singulair) 10 mg PO DAILY [facility] Last Admin: 10/27/16 08:34 Dose: 10 mg Omeprazole (Omeprazole) 20 mg PO BIDAC [facility] Last Admin: 10/27/16 06:23 Dose: 20 mg Ondansetron HCl (Zofran) 4 mg IVPUSH Q4H PRN PRN Reason: Nausea/Vomiting Last Admin: 10/24/16 11:57 Dose: 4 mg Potassium Chloride (Klor-Con 10) 20 meq PO BIDMEALS [facility] Last Admin: 10/27/16 08:02 Dose: 20 meq Sodium Chloride (Saline Flush) 10 ml FLUSH ASDIRECTED PRN PRN Reason: Keep Vein Open Sodium Chloride ([place] Nasal [place]) 0 ml VU Q2H PRN PRN Reason: dry nose Last Admin: 10/26/16 02:50 Dose: 1 spray Discontinued Medications Hydrocodone Bitart/Acetaminophen ([place] 325-10 Mg) 1 tab PO ONETIME ONE Stop: 10/24/16 06:03 Last Admin: 10/24/16 06:06 Dose: 1 tab Albuterol/Ipratropium (Duoneb 3.0-0.5 Mg/3 Ml) 3 ml NEB ONETIME ONE Stop: 10/24/16 05:41 Last Admin: 10/24/16 05:45 Dose: 3 ml Benzonatate (Tessalon Perles) 100 mg PO ONETIME ONE Stop: 10/24/16 05:51 Last Admin: 10/24/16 05:55 Dose: 100 mg Guaifenesin/Codeine Phosphate (Robitussin Ac) 5 ml PO Q6H PRN PRN Reason: Cough Last Admin: 10/25/16 10:30 Dose: 5 ml Levofloxacin/Dextrose 500 mg/ (Premix) 100 mls @ 100 mls/hr IV ONETIME ONE Stop: 10/24/16 07:52 Last Admin: 10/24/16 07:01 Dose: 100 mls/hr Sodium Chloride (Normal Saline) 1,000 mls @ 100 mls/hr IV ASDIRECTED [facility] Last Admin: 10/27/16 09:13 Dose: 100 mls/hr Sodium Chloride (Normal Saline) 500 mls @ 999 mls/hr IV .BOLUS [facility] Last Infusion: 10/24/16 16:15 Dose: Infused Magnesium Sulfate/Dextrose 2 (gm/ Premix) 200 mls @ 100 mls/hr IV ONETIME ONE Stop: 10/24/16 18:14 Last Infusion: 10/24/16 18:30 Dose: Infused Sodium Chloride (Normal Saline) 500 mls @ 999 mls/hr IV .BOLUS [facility] Last Admin: 10/25/16 03:54 Dose: 999 mls/hr Aztreonam 1 gm/ Sodium (Chloride) 50 mls @ 100 mls/hr IV Q12H [facility] Last Admin: 10/27/16 08:29 Dose: 100 mls/hr Insulin Aspart (Novolog) 16 unit SUBCUT ONETIME ONE Stop: 10/24/16 17:07 Last Admin: 10/24/16 17:26 Dose: 16 units Insulin Aspart (Novolog) 15 unit SUBCUT ONETIME ONE Stop: 10/24/16 21:04 Last Admin: 10/24/16 21:13 Dose: 15 units Insulin Detemir (Levemir) 20 unit SUBCUT 2100 [facility] Last Admin: 10/24/16 20:52 Dose: 20 units Methylprednisolone Sodium Succinate (Solu-Medrol) 125 mg IVPUSH ONETIME ONE Stop: 10/24/16 05:51 Last Admin: 10/24/16 05:55 Dose: 125 mg Methylprednisolone Sodium Succinate (Solu-Medrol) 80 mg IVPUSH Q8HR [facility] Last Admin: 10/27/16 06:21 Dose: 80 mg Midodrine (Midodrine) 10 mg PO ONETIME ONE Stop: 10/25/16 03:37 Last Admin: 10/25/16 03:51 Dose: 10 mg Midodrine (Midodrine) 5 mg PO TIDAC [facility] Last Admin: 10/26/16 08:51 Dose: 5 mg Midodrine (Midodrine) 2.5 mg PO TIDAC [facility] Last Admin: 10/27/16 11:11 Dose: Not Given Non-Formulary Medication ([place]-3 Fatty Acids [Fish Oil]) 300 mg PO DAILY [facility] Last Admin: 10/25/16 16:23 Dose: Not Given Zolpidem Tartrate (Ambien) 5 mg PO BEDTIME PRN PRN Reason: Sleep Last Admin: 10/25/16 20:14 Dose: 5 mg - Exam Quality Assessment: No: supplemental oxygen General: alert, oriented Neck: supple Lungs: Clear to auscultation, Normal respiratory effort. No: Rhonchi, Wheezing Cardiovascular: Regular Rate, Regular Rhythm Abdomen: bowel sounds present, soft, no tenderness, no distension Extremities: no edema Skin: warm Psy/Mental Status: alert, normal affect, normal mood - Problem List & Annotations (1) UTI (urinary tract infection) SNOMED Code(s): 95348034 Code(s): N39.0 - URINARY TRACT INFECTION, SITE NOT SPECIFIED Status: Acute Current Visit: Yes (2) Sepsis SNOMED Code(s): 70519907 Code(s): A41.9 - SEPSIS, UNSPECIFIED ORGANISM Status: Acute Current Visit : Yes (3) Acute asthma SNOMED Code(s): 719483298 Code(s): J45.909 - UNSPECIFIED ASTHMA, UNCOMPLICATED Status: Acute Current Visit: No - Problem List Review Problem List Initiated/Reviewed/Updated: Yes - My Orders Last 24 Hours: My Active Orders 10/26/16 Lunch Regular Diet [DIET] 10/27/16 14:00 methylPREDNISolone Sod Succ [Solu-MEDROL] 40 mg IVPUSH Q8HR - Assessment Assessment:: The patient is a 46-year-old lady with a history of hypertension, dyslipidemia, diabetes, 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 Presented with shortness of breath. She was noted to have sepsis on admission with hypotension, UTI. The patient was admitted and has been treated for UTI and acute hypoxemic respiratory failure due to acute Asthma exacerbation. 1. Acute asthma exacerbation The patient is admitted with increasing shortness of breath and noted to have bilateral wheezing. She is improved on today's physical examination Will taper IV steroids, continue Pulmicort nebulizer, DuoNeb Leukocytosis is likely related to the steroids and infection combination 2. Acute hypoxemic respiratory failure now off oxygen Encourage activity and monitor oxygen saturations with activity 3. Hypotension due to Sepsis due to Urinary tract infection Hypotension has improved with midodrine -Will stop midodrine Sepsis has resolved Urine culture grew Escherichia coli and group B. Streptococcus - both sensitive to levofloxacin Blood cultures are negative stop azactam and continue levofloxacin 4. Hypothyroidism Will need outpatient followup 5. Hypokalemia Resolved 6. Diabetes - uncontrolled She does not want restrictions on her diet Blood sugars are elevated likely due to steroids - Taper steroid today Will continue with increased Levemir 7. iron deficiency anemia start iron replacement, follow up as outpatient 8. DVT prophylaxis with Lovenox
[2016-10-27] MEDS: Iron Polysaccharides Complex 150 MG Cap PO SCH (12:23)
[2016-10-27] MEDS: Insulin Detemir 100 Units/ML 3 ML Pen SUBCUT SCH (21:50)
[2016-10-27] MEDS: Sodium Chloride 0.9% 10 ML Syringe FLUSH PRN ×2 (22:06→22:17)
[2016-10-28] MEDS: diphenhydrAMINE 25 MG Tab PO PRN (00:57)
[2016-10-28] MEDS: Albuterol/Ipratropium 3.0-0.5 MG/3 ML Neb Soln NEB SCH ×4 (03:11→16:46)
[2016-10-28] MEDS: Levofloxacin/Dextrose 5%-Water 500 MG in Premix Bag 1 BAG IV SCH (05:21)
[2016-10-28] MEDS: Sodium Chloride 0.9% 10 ML Syringe FLUSH PRN ×3 (05:24→06:37)
[2016-10-28] MEDS: Omeprazole 20 MG Cap.CR PO SCH (05:29)
[2016-10-28] MEDS: Acetaminophen/HYDROcodone 325-5 MG Tab PO PRN (05:36)
[2016-10-28] MEDS: Budesonide 0.5 MG/2 ML Neb Susp NEB SCH (06:26)
[2016-10-28] MEDS: methylPREDNISolone Sodium Succinate 40 MG/1 ML SDV IVPUSH SCH ×2 (06:37→16:46)
[2016-10-28] MEDS: guaiFENesin/Dextromethorphan 100-10 MG/5 ML Soln 5 ML Cup PO PRN (06:49)
[2016-10-28] MEDS: LORazepam 1 MG Tab PO PRN (08:38)
[2016-10-28] MEDS: Iron Polysaccharides Complex 150 MG Cap PO SCH (08:41)
[2016-10-28] MEDS: Potassium Chloride 10 MEQ Tab.ER PO SCH (08:41)
[2016-10-28] MEDS: Aspirin 81 MG Tab.EC PO SCH (08:41)
[2016-10-28] MEDS: Gabapentin 300 MG Cap PO SCH ×2 (08:42→16:45)
[2016-10-28] MEDS: Calcium Carbonate 500 MG Tab.Chew PO SCH (08:42)
[2016-10-28] MEDS: Montelukast 10 MG Tab PO SCH (08:42)
[2016-10-28 08:45] VITALS: BP 138/67
[2016-10-28] MEDS: Enoxaparin 40 MG/0.4 ML Syringe SUBCUT SCH (08:46)
[2016-10-28] MEDS: Insulin Aspart 100 Units/ML 3 ML Pen SUBCUT SCH ×2 (10:25→11:39)
[2016-10-28] MEDS ORDERED: LORazepam 1 MG Tab PO PRN (11:33)
--- NOTE | 2016-10-28 11:41 | PCM.DCSUM1 ---
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 Presented with shortness of breath. She was noted to have sepsis on admission with hypotension, UTI. The patient was admitted and has been treated for UTI and acute hypoxemic respiratory failure due to acute Asthma exacerbation. 1. Acute asthma exacerbation The patient is admitted with increasing shortness of breath and noted to have bilateral wheezing. She is improved physical examination nevertheless she is still complaining of cough which is mostly nonproductive. She has pleuritic type of chest pain with coughing. Has mild hemoptysis. subjectively she does not feel improved in fact she has episodes where she cannot breathe. She has a significant anxiety component Will continue IV steroids, continue Pulmicort nebulizer, DuoNeb Leukocytosis is likely related to the steroids and infection combination Will transfer to [place] for further acute care 2. Acute hypoxemic respiratory failure now off oxygen Encouraged activity and monitor oxygen saturations with activity 3. Hypotension due to Sepsis due to Urinary tract infection Hypotension has improved with midodrine -Will stop midodrine Sepsis has resolved Urine culture grew Escherichia coli and group B. Streptococcus - both sensitive to levofloxacin Blood culture showed Corynebacterium species stopped azactam and continue levofloxacin 4. Hypothyroidism Will need outpatient followup 5. Hypokalemia Resolved 6. Diabetes - uncontrolled She does not want restrictions on her diet Blood sugars are elevated likely due to steroids - Taper steroids Continue with Levemir 7. iron deficiency anemia on iron replacement, follow up as outpatient 8. DVT prophylaxis with Lovenox - Discharge Data Discharge Date: 10/28/16 Discharge Disposition: DC/Tfer to Acute Hospital 02 Condition: Good - Discharge Diagnosis/Problem(s) (1) UTI (urinary tract infection) SNOMED Code(s): 48346995 ICD Code: N39.0 - URINARY TRACT INFECTION, SITE NOT SPECIFIED Status: Acute Current Visit: Yes (2) Sepsis SNOMED Code(s): 13103950 ICD Code: A41.9 - SEPSIS, UNSPECIFIED ORGANISM Status: Acute Current Visit: Yes (3) Acute asthma SNOMED Code(s): 950967728 ICD Code: J45.909 - UNSPECIFIED ASTHMA, UNCOMPLICATED Status: Acute Current Visit: No - Patient Instructions Diet: Diabetic Diet Activity: As Tolerated - Discharge Plan Home Medications: Home Meds Albuterol Sulfate 2.5 mg IH Q4HR PRN 03/15/14 [History] Lisinopril 20 mg PO DAILY 03/15/14 [History] Omeprazole 20 mg PO BID 03/15/14 [History] metFORMIN [Glucophage] 500 mg PO BID 03/15/14 [History] Aspirin [Ecotrin] 81 mg PO DAILY 09/09/15 [History] Gabapentin [Neurontin] 600 mg PO TID 09/09/15 [History] Montelukast Sodium [Singulair] 10 mg PO DAILY 09/09/15 [History] Acetaminophen 650 mg PO Q4H PRN 10/24/16 [History] Albuterol Sulfate 1 ampule INH Q4H PRN 10/24/16 [History] Albuterol/Ipratropium [Take Home: Albuterol/Ipratropium 4 GM Inhaler] 1 puff INH QID 10/24/16 [History] Ascorbic Acid 250 mg PO QID 10/24/16 [History] Budesonide [Pulmicort] 0.5 mg IH BID 10/24/16 [History] Calcium Citrate/Vitamin D3 [Calcium Citrate - Vit D Caplet] 1 each PO BID [History] Diclofenac Sodium [Voltaren 1% Gel] 100 gm TOP QID 10/24/16 [History] Ferrous Gluconate 324 mg PO DAILY 10/24/16 [History] Lidocaine 5% [Lidoderm 5%] 700 mg TOP DAILY 10/24/16 [History] Loratadine [Claritin] 10 mg PO DAILY 10/24/16 [History] Meloxicam [Mobic] 15 mg PO DAILY 10/24/16 [History] [place]-3/DHA/Epa/Fish Oil [[place]-3 Fish Oil 1,000 MG Sfgl] 1,000 mg PO QID [History] Psyllium Husk [Metamucil] 1 tbsp PO DAILY PRN 10/24/16 [History] Acetaminophen/HYDROcodone [[place] 325-5 MG] 1 tab PO Q6H PRN #0 tablet 10/28/16 [ Rx] Albuterol/Ipratropium [DuoNeb 3.0-0.5 MG/3 ML] 3 ml NEB Q4HRRT neb 10/28/16 [Rx ] Budesonide [Pulmicort] 0.5 mg NEB BIDRT neb 10/28/16 [Rx] Calcium Carbonate [Tums] 500 mg PO DAILY tab.chew 10/28/16 [Rx] Dextromethorphan/guaiFENesin [Robitussin DM] 10 ml PO Q6H PRN #0 cup 10/28/16 [ Rx] Enoxaparin [Lovenox] 40 mg SUBCUT DAILY syringe 10/28/16 [Rx] Insulin Aspart [NovoLOG] 0 unit SUBCUT ACBED pen 10/28/16 [Rx] Insulin Detemir [Levemir] 30 unit SUBCUT 2100 pen 10/28/16 [Rx] Iron Polysaccharides Complex [Ferrex 150] 150 mg PO DAILY cap 10/28/16 [Rx] LORazepam [Ativan] 1 mg PO Q6H PRN #0 tablet 10/28/16 [Rx] Levofloxacin/Dextrose 5%-Water [Levaquin in D5W 500 MG/100 ML] 500 mg IV Q24H bag 10/28/16 [Rx] Potassium Chloride [Klor-Con 10] 20 meq PO BIDMEALS tab.er 10/28/16 [Rx] methylPREDNISolone Sod Succ [Solu-MEDROL] 40 mg IVPUSH Q8HR sdv 10/28/16 [Rx] Patient Handouts: Prednisolone tablets, Urinary Tract Infection, Adult, Asthma , Adult, [id number], Levofloxacin tablets, Asthma Attack Prevention - Discharge Summary/Plan Comment DC Time >30 min.: No - General Info Admission Dx/Problem (Free Text: sepsis, uti, acute asthma exacerbation, acute bronchitis Functional Status: Denies: pain controlled (has chest pain with coughing) - Review of Systems General: Reports: Malaise. Denies: Fever Pulmonary: Reports: shortness of breath, cough, hemoptysis. Denies: sputum, wheezing Cardiovascular: Reports: Chest Pain (with cough) Gastrointestinal: Denies: Abdominal pain Genitourinary: Denies: dysuria Neurological: Reports: Headache. Denies: Confusion Psychiatric: Reports: anxiety - Patient Data Vitals - Most Recent: Last Vital Signs Temp 36.5 C 10/28/16 08:44 Pulse 96 10/28/16 11:04 Resp 20 10/28/16 08:44 BP 138/67 10/28/16 08:44 Pulse Ox 100 10/28/16 08:44 Weight - Most Recent: 114.033 kg I&O - Last 24 hours: Intake & Output 10/27/16 10/28/16 10/28/16 22:59 06:59 14:59 Intake Total 1476 1090 Balance 1476 1090 Lab Results - Last 24 hrs: Laboratory Results - last 24 hr 10/27/16 10/27/16 10/27/16 Range/Units 12:00 16:40 20:45 POC Glucose 305 H 219 H 312 H (70-105) mg/dl 10/28/16 10/28/16 Range/Units 08:08 11:22 POC Glucose 170 H 242 H (70-105) mg/dl Med Orders - Current: Current Medications Acetaminophen (Tylenol) 650 mg PO Q4H PRN PRN Reason: Pain (Mild 1-3)/fever Last Admin: 10/27/16 22:00 Dose: 650 mg Hydrocodone Bitart/Acetaminophen ([place] 325-5 Mg) 1 tab PO Q6H PRN PRN Reason: Pain (severe 7-10) Last Admin: 10/28/16 05:36 Dose: 1 tab Albuterol/Ipratropium (Duoneb 3.0-0.5 Mg/3 Ml) 3 ml NEB Q4HRRT [facility] Last Admin: 10/28/16 11:04 Dose: 3 ml Aspirin (Halfprin) 81 mg PO DAILY [facility] Last Admin: 10/28/16 08:41 Dose: 81 mg Budesonide (Pulmicort) 0.5 mg NEB BIDRT [facility] Last Admin: 10/28/16 06:26 Dose: 0.5 mg Calcium Carbonate/Glycine (Tums) 500 mg PO DAILY [facility] Last Admin: 10/28/16 08:42 Dose: 500 mg Dextrose/Water (Dextrose 50% In Water) 50 ml IVPUSH ONETIME PRN PRN Reason: Hypoglycemia Diphenhydramine HCl (Benadryl) 25 mg PO QID PRN PRN Reason: Itching Last Admin: 10/28/16 00:57 Dose: 25 mg Docusate Sodium (Colace) 100 mg PO BID PRN PRN Reason: Constipation Last Admin: 10/24/16 10:07 Dose: 100 mg Enoxaparin Sodium (Lovenox) 40 mg SUBCUT DAILY [facility] Last Admin: 10/28/16 08:46 Dose: 40 mg Gabapentin (Neurontin) 300 mg PO TID [facility] Last Admin: 10/28/16 08:42 Dose: 300 mg Guaifenesin/Phenylephrine HCl (Robitussin Dm) 10 ml PO Q6H PRN PRN Reason: Cough Last Admin: 10/28/16 06:49 Dose: 10 ml Levofloxacin/Dextrose 500 mg/ (Premix) 100 mls @ 100 mls/hr IV Q24H [facility] Last Admin: 10/28/16 05:21 Dose: 100 mls/hr Insulin Aspart (Novolog) 0 unit SUBCUT ACBED [facility] PRN Reason: Protocol Last Admin: 10/28/16 10:25 Dose: Not Given Insulin Detemir (Levemir) 30 unit SUBCUT 2100 [facility] Last Admin: 10/27/16 21:50 Dose: 30 units Lorazepam (Ativan) 1 mg PO Q4H PRN PRN Reason: Anxiety Magnesium Hydroxide (Milk Of Magnesia) 30 ml PO Q12H PRN PRN Reason: Constipation Methylprednisolone Sodium Succinate (Solu-Medrol) 40 mg IVPUSH Q8HR [facility] Last Admin: 10/28/16 06:37 Dose: 40 mg Montelukast Sodium (Singulair) 10 mg PO DAILY [facility] Last Admin: 10/28/16 08:42 Dose: 10 mg Omeprazole (Omeprazole) 20 mg PO BIDAC [facility] Last Admin: 10/28/16 05:29 Dose: 20 mg Ondansetron HCl (Zofran) 4 mg IVPUSH Q4H PRN PRN Reason: Nausea/Vomiting Last Admin: 10/24/16 11:57 Dose: 4 mg Polysaccharide Iron Complex (Ferrex 150) 150 mg PO DAILY [facility] Last Admin: 10/28/16 08:41 Dose: 150 mg Potassium Chloride (Klor-Con 10) 20 meq PO BIDMEALS [facility] Last Admin: 10/28/16 08:41 Dose: 20 meq Sodium Chloride (Saline Flush) 10 ml FLUSH ASDIRECTED PRN PRN Reason: Keep Vein Open Last Admin: 10/28/16 06:37 Dose: 10 ml Sodium Chloride ([place] Nasal [place]) 0 ml VU Q2H PRN PRN Reason: dry nose Last Admin: 10/26/16 02:50 Dose: 1 spray Discontinued Medications Hydrocodone Bitart/Acetaminophen ([place] 325-10 Mg) 1 tab PO ONETIME ONE Stop: 10/24/16 06:03 Last Admin: 10/24/16 06:06 Dose: 1 tab Albuterol/Ipratropium (Duoneb 3.0-0.5 Mg/3 Ml) 3 ml NEB ONETIME ONE Stop: 10/24/16 05:41 Last Admin: 10/24/16 05:45 Dose: 3 ml Benzonatate (Tessalon Perles) 100 mg PO ONETIME ONE Stop: 10/24/16 05:51 Last Admin: 10/24/16 05:55 Dose: 100 mg Guaifenesin/Codeine Phosphate (Robitussin Ac) 5 ml PO Q6H PRN PRN Reason: Cough Last Admin: 10/25/16 10:30 Dose: 5 ml Levofloxacin/Dextrose 500 mg/ (Premix) 100 mls @ 100 mls/hr IV ONETIME ONE Stop: 10/24/16 07:52 Last Admin: 10/24/16 07:01 Dose: 100 mls/hr Sodium Chloride (Normal Saline) 1,000 mls @ 100 mls/hr IV ASDIRECTED [facility] Last Admin: 10/27/16 09:13 Dose: 100 mls/hr Sodium Chloride (Normal Saline) 500 mls @ 999 mls/hr IV .BOLUS [facility] Last Infusion: 10/24/16 16:15 Dose: Infused Magnesium Sulfate/Dextrose 2 (gm/ Premix) 200 mls @ 100 mls/hr IV ONETIME ONE Stop: 10/24/16 18:14 Last Infusion: 10/24/16 18:30 Dose: Infused Sodium Chloride (Normal Saline) 500 mls @ 999 mls/hr IV .BOLUS [facility] Last Admin: 10/25/16 03:54 Dose: 999 mls/hr Aztreonam 1 gm/ Sodium (Chloride) 50 mls @ 100 mls/hr IV Q12H [facility] Last Admin: 10/27/16 08:29 Dose: 100 mls/hr Insulin Aspart (Novolog) 16 unit SUBCUT ONETIME ONE Stop: 10/24/16 17:07 Last Admin: 10/24/16 17:26 Dose: 16 units Insulin Aspart (Novolog) 15 unit SUBCUT ONETIME ONE Stop: 10/24/16 21:04 Last Admin: 10/24/16 21:13 Dose: 15 units Insulin Detemir (Levemir) 20 unit SUBCUT 2100 [facility] Last Admin: 10/24/16 20:52 Dose: 20 units Lorazepam (Ativan) 1 mg PO Q6H PRN PRN Reason: Anxiety Last Admin: 10/28/16 08:38 Dose: 1 mg Methylprednisolone Sodium Succinate (Solu-Medrol) 125 mg IVPUSH ONETIME ONE Stop: 10/24/16 05:51 Last Admin: 10/24/16 05:55 Dose: 125 mg Methylprednisolone Sodium Succinate (Solu-Medrol) 80 mg IVPUSH Q8HR [facility] Last Admin: 10/27/16 06:21 Dose: 80 mg Midodrine (Midodrine) 10 mg PO ONETIME ONE Stop: 10/25/16 03:37 Last Admin: 10/25/16 03:51 Dose: 10 mg Midodrine (Midodrine) 5 mg PO TIDAC [facility] Last Admin: 10/26/16 08:51 Dose: 5 mg Midodrine (Midodrine) 2.5 mg PO TIDAC [facility] Last Admin: 10/27/16 11:11 Dose: Not Given Non-Formulary Medication ([place]-3 Fatty Acids [Fish Oil]) 300 mg PO DAILY [facility] Last Admin: 10/25/16 16:23 Dose: Not Given Zolpidem Tartrate (Ambien) 5 mg PO BEDTIME PRN PRN Reason: Sleep Last Admin: 10/25/16 20:14 Dose: 5 mg - Exam Quality Assessment: Denies: supplemental oxygen General: Reports: alert, oriented Neck: Reports: supple Lungs: Reports: Clear to auscultation, Normal respiratory effort. Denies: Rales , Rhonchi, Wheezing Cardiovascular: Reports: Regular Rate, Regular Rhythm Abdomen: Reports: bowel sounds present, soft, no tenderness, no distension Extremities: Reports: no edema Skin: Reports: warm, dry, intact Neurological: Reports: no new focal deficit Psy/Mental Status: Reports: alert, anxious *Q Meaningful Use (DIS) - VTE *Q VTE Criteria *Q: - Stroke *Q Stroke Criteria *Q: - AMI *Q AMI Criteria *Q:
== END 2016-10-28 12:15 | DRG 871 ==
LOC: DL.ED 05:33 → UNDOADMIN 07:07 → DL.MS 07:07
PROVIDERS: ADMIT Internal Medicine; ATTEND Internal Medicine
DX: A41.89 Other specified sepsis (principal); J96.01 Acute respiratory failure with hypoxia; N39.0 Urinary tract infection, site not specified; J45.901 Unspecified asthma with (acute) exacerbation; B96.20 Unspecified Escherichia coli [E. coli] as the cause of diseases classified elsewhere; B95.1 Streptococcus, group B, as the cause of diseases classified elsewhere; E06.3 Autoimmune thyroiditis; E03.9 Hypothyroidism, unspecified; I10 Essential (primary) hypertension; E78.5 Hyperlipidemia, unspecified; F41.9 Anxiety disorder, unspecified; I95.89 Other hypotension; E87.6 Hypokalemia; D50.9 Iron deficiency anemia, unspecified; E11.40 Type 2 diabetes mellitus with diabetic neuropathy, unspecified; Z87.891 Personal history of nicotine dependence; Z79.899 Other long term (current) drug therapy; Z88.0 Allergy status to penicillin; Z88.8 Allergy status to other drugs, medicaments and biological substances
CPT/HCPCS: 36415; 71010; 80048; 80053; 81001; 82533; 82607; 82728; 82746; 82962; 83036; 83540; 83605; 83735; 84443; 84466; 84484; 85025; 85027; 87040; 87086; 87088; 87186; 93005; 93970; 94010; 94640; 96365; 96375; 99285; A9270-GY; J1650; J1815-GY; J1956; J2405; J2920; J2930; J3475; J7030; J7040; J7050; S0073

== ENCOUNTER 2017-04-10 10:04 | Day surgery (SDC) | payer MEDICAID, OTHER ==
[~2017-04-10 10:04] MED LIST: Cataract Ophth Solution EYERT ONE; Lidocaine 4% 5 ML Amp EYERT ONE; Moxifloxacin 0.5% Ophth Soln 3 ML Bottle EYERT ONE; Sodium Chloride 0.9% 10 ML Syringe FLUSH PRN
[2017-04-10] MEDS ORDERED: Midazolam 1 MG/ML 2 ML SDV IV ONE (10:05)
[2017-04-10] MEDS ORDERED: Povidone-Iodine 5% Sterile Ophth Soln 30 ML Bottle EYERT ONE (12:20)
[2017-04-10] MEDS ORDERED: prednisoLONE Acetate 1% Ophth Susp 5 ML Bottle EYERT ONE (12:21)
[2017-04-10] MEDS ORDERED: Lidocaine 1% 30 ML SDV ONE (12:21)
[2017-04-10] MEDS ORDERED: EPINEPHrine 1 MG/ML SDV ONE (12:21)
[2017-04-10] MEDS ORDERED: Balanced Salt Solution Ophth Irrig 500 ML Bottle IOCULAR ONE (12:22)
[2017-04-10] MEDS ORDERED: Moxifloxacin 0.5% Ophth Soln 3 ML Bottle EYERT ONE (12:22)
[2017-04-10] MEDS ORDERED: Lidocaine 4% 5 ML Amp EYERT ONE (12:22)
--- NOTE | 2017-04-10 12:46 | PCM.OPNOTE ---
- General Post-Op/Procedure Note Date of Surgery/Procedure: 04/10/17 Operative Procedure(s): Cataract Extraction with lens implant right eye Findings: As above Pre Op Diagnosis: Cataract right eye Post-Op Diagnosis: Same Anesthesia Technique: MAC Primary Surgeon: Robson Quiroga Anesthesia Provider: Jerry Pathology: None EBL in mLs: 0 Complications: None Condition: Good Free Text/Narrative:: PROCEDURE: After the risks and benefits of the procedure were explained informed consent was obtained from the patient and the patient was taken to the operating room. The patient was given topical Lidocaine 4% drops in the right eye. The patient was then prepped and draped in the sterile [facility] fashion. A wire lid speculum was placed in the right eye. A clear cornea temporal approach was used. A 7515 duckwater blade was used to make a paracentesis site around 11:00. Preservative-free Lidocaine 1% was injected intracamerally. Viscoelastic was placed in the anterior chamber. A 2.65 mm keratome blade was used to make a clear corneal incision around 9:00. A cystotome needle and Utrata forceps were used to perform continuous curvilinear capsulorhexis. Balanced Salt Solution was used to perform hydrodissection and hydrodelineation. The lens nucleus was removed using the divide and conquer phacoemulsification technique. Cumulative dissipated energy was 5.08. Remaining cortex was removed using irrigation- aspiration. Viscoelastic was placed in the capsular bag. ZCBOO 15.5 diopter lens was then placed in the capsular bag. Remaining viscoelastic was removed using irrigation-aspiration. The lens was well centered in the capsular bag. The paracentesis and corneal incision were found to be water-tight. The patient was given topical Prednisolone and Vigamox drops. The speculum was removed and a shield was placed over the right eye. The patient was taken to recovery in stable condition. I certify that I was present for and performed the entire operative procedure. Robson Quiroga M.D.
[2017-04-10] MEDS ORDERED: Acetaminophen 325 MG Tab PO PRN (12:55)
[2017-04-10 13:46] VITALS: BP 117/70
== END 2017-04-10 13:55 | disposition home or self-care (01) ==
LOC: DL.SDS 10:04
PROVIDERS: ATTEND Ophthalmology
DX: H26.9 Unspecified cataract (principal); E11.40 Type 2 diabetes mellitus with diabetic neuropathy, unspecified; I25.10 Atherosclerotic heart disease of native coronary artery without angina pectoris; I10 Essential (primary) hypertension; J45.909 Unspecified asthma, uncomplicated; E05.90 Thyrotoxicosis, unspecified without thyrotoxic crisis or storm; Z90.49 Acquired absence of other specified parts of digestive tract; Z88.0 Allergy status to penicillin; Z88.8 Allergy status to other drugs, medicaments and biological substances; Z87.891 Personal history of nicotine dependence
CPT/HCPCS: 66984; A9270; J0171; J7050; C1780; J2250

== ENCOUNTER 2020-12-11 18:18 | Emergency (ER) | payer MEDICAID ==
[2020-12-11 18:37] VITALS: BP 141/100; PULSE 99
--- NOTE | 2020-12-11 21:14 | CR ---
PROCEDURE INFORMATION: Exam: XR Right Wrist Exam date and time: 12/11/2020 8:30 PM Age: 50 years old Clinical indication: Other: Pain--5th finger hurts on right hand also; Additional info: Fell off ladder 3 weeks ago TECHNIQUE: Imaging protocol: XR Right wrist. Views: 3 or more views. COMPARISON: No relevant prior studies available. FINDINGS: Bones/joints: Appears to be healing fracture /age-indeterminate fracture at the base of the proximal phalanx of the 5th finger. Otherwise unremarkable. Transverse lucency demonstrated in the distal radial metaphysis with contour abnormalities demonstrated on the medial and lateral margins. Findings may represent a healing fracture. Soft tissues: Normal. IMPRESSION: 1. Appears to be healing fracture /age-indeterminate fracture at the base of the proximal phalanx of the 5th finger. Otherwise unremarkable. 2. Transverse lucency demonstrated in the distal radial metaphysis with contour abnormalities demonstrated on the medial and lateral margins. Findings may represent a healing fracture. PROCEDURE INFORMATION: Exam: XR Left Wrist Exam date and time: 12/11/2020 8:30 PM Age: 50 years old Clinical indication: Other: Pain--5th finger hurts on right hand also; Additional info: Fell off ladder 3 weeks ago TECHNIQUE: Imaging protocol: XR Left wrist. Views: 3 or more views. COMPARISON: No relevant prior studies available. FINDINGS: Bones/joints: Normal. Soft tissues: Normal. IMPRESSION: No acute findings.
--- NOTE | 2020-12-11 21:16 | CT ---
PROCEDURE INFORMATION: Exam: CT Neck Without Contrast Exam date and time: 12/11/2020 8:25 PM Age: 50 years old Clinical indication: Other: Neck pain swelling on left-difficulty breathing; Additional info: Neck swelling left side TECHNIQUE: Imaging protocol: Computed tomography images of the neck without contrast. Radiation optimization: All CT scans at this facility use at least one of these dose optimization techniques: automated exposure control; mA and/or kV adjustment per patient size (includes targeted exams where dose is matched to clinical indication); or iterative reconstruction. COMPARISON: CT Cervical Spine wo Cont 01/08/2018 12:46 AM FINDINGS: Nasopharynx: Unremarkable. Oropharynx: Unremarkable. No significant tonsillar enlargement. Hypopharynx: Unremarkable. Larynx: Unremarkable. Normal epiglottis. Retropharyngeal space: Unremarkable. Submandibular/Parotid glands: Normal. Glands are normal in size. Thyroid: Complex peripherally enhancing solid appearing nodule in the lower pole of the left lobe of the thyroid gland measures 2.3 x 2.3 x 3.6 cm. Correlation with thyroid ultrasound suggested. Lymph nodes: Bilateral cervical chain lymphadenopathy not significantly enlarged based on standard node criteria. Trachea: Visualized trachea is unremarkable. Lungs: Unremarkable as visualized. Bones/joints: Unremarkable. No acute fracture. Soft tissues: Unremarkable. No significant soft tissue swelling. IMPRESSION: Complex peripherally enhancing solid appearing nodule in the lower pole of the left lobe of the thyroid gland measures 2.3 x 2.3 x 3.6 cm. Correlation with thyroid ultrasound suggested. COMMENTS: Consistent with the [employer]'s Incidental Findings Committee white paper (J Am Louise Radiol 2015): In patients aged 35 years and older with an incidental thyroid nodule equal to or greater than 1.[address], MRI or extrathyroidal US, further evaluation with dedicated thyroid US is recommended for patients with normal life expectancy and without comorbidities. For smaller nodules without suspicious features, no further evaluation or follow up is recommended.
--- NOTE | 2020-12-11 21:23 | EDM.PDOC ---
ED HPI GENERAL MEDICAL PROBLEM - General Chief Complaint: General Stated Complaint: FELL PAINTING A FENCE Time Seen by Provider: 12/11/20 19:30 Source of Information: Reports: Patient History Limitations: Reports: No Limitations - History of Present Illness INITIAL COMMENTS - FREE TEXT/NARRATIVE: ED with c/o bilateral wrist pain from falling off ladder while painting fence 3 weeks ago. Also c/o difficulty breathing from lump in neck,states no insurance and not followed up, stated she was pulling on area of neck with lump, lost balance and fell. - Related Data Allergies Allergy/AdvReac Type Severity Reaction Status Date / Time Penicillins Allergy Unknown Rash Verified 12/11/20 18:35 codeine Allergy Vomiting Verified 12/11/20 18:35 ibuprofen Allergy Rash Verified 12/11/20 18:35 Home Meds: Home Meds Lisinopril 20 mg PO DAILY 03/15/14 [History] Omeprazole 20 mg PO BID 03/15/14 [History] metFORMIN [Glucophage] 500 mg PO BID 03/15/14 [History] Aspirin [Ecotrin EC] 81 mg PO DAILY 09/09/15 [History] Gabapentin [Neurontin] 600 mg PO TID 09/09/15 [History] Montelukast Sodium [Singulair] 20 mg PO DAILY 09/09/15 [History] Albuterol Sulfate 1 ampule INH Q4H PRN 10/24/16 [History] Albuterol/Ipratropium [Take Home: Albuterol/Ipratropium 4 GM Inhaler] 1 puff INH QID 10/24/16 [History] Ascorbic Acid 250 mg PO QID 10/24/16 [History] Calcium Citrate/Vitamin D3 [Calcium Citrate - Vit D Caplet] 1 each PO BID 10/24/16 [History] Diclofenac Sodium [Voltaren 1% Gel] 100 gm TOP QID 10/24/16 [History] Lidocaine 5% [Lidoderm 5%] 700 mg TOP DAILY 10/24/16 [History] Loratadine [Claritin] 10 mg PO DAILY 10/24/16 [History] [place]-3/DHA/Epa/Fish Oil [[place]-3 Fish Oil 1,000 MG Sfgl] 1,000 mg PO QID 10/03 08/18 [History] Psyllium Husk [Metamucil] 1 tbsp PO DAILY PRN 10/24/16 [History] LORazepam [Ativan] 1 mg PO Q6H PRN #0 tablet 10/28/16 [Rx] Potassium Chloride [Klor-Con 10] 20 meq PO BIDMEALS tab.er 10/28/16 [Rx] Fluticasone/Salmeterol [Advair 500-50] 2 puff INH ASDIRECTED 01/08/18 [History] Past Medical History HEENT History: Reports: Allergic Rhinitis, Cataract Cardiovascular History: Reports: Blood Clots/VTE/DVT, CAD, Heart Murmur, Hypertension Respiratory History: Reports: Asthma Other Respiratory History: seasonal allergies Gastrointestinal History: Reports: Cholelithiasis, GERD Genitourinary History: Reports: UTI, Recurrent [employer] History: Reports: Musculoskeletal History: Reports: Fibromyalgia, RA Other Musculoskeletal History: carpal tunnel Neurological History: Reports: Neuropathy, Diabetic Psychiatric History: Reports: Anxiety Endocrine/Metabolic History: Reports: Diabetes, Type I, Hyperthyroidism, Other (See Below) Other Endocrine/Metabolic History: goiter? Mass in thyroid. Hematologic History: Reports: None, Anemia, Blood Transfusion(s) Immunologic History: Reports: None Oncologic (Cancer) History: Reports: Thyroid Dermatologic History: Reports: Cellulitis, Other (See Below) Other Dermatologic History: tick bite 10/24/16 - Infectious Disease History Infectious Disease History: Reports: Chicken Pox - Past Surgical History Head Surgeries/Procedures: Reports: None HEENT Surgical History: Reports: Cataract Surgery, Other (See Below) Other HEENT Surgeries/Procedures: LEFT CATARACT EXTRACTION IOL Cardiovascular Surgical History: Reports: None Respiratory Surgical History: Reports: None GI Surgical History: Reports: Cholecystectomy Female Surgical History: Reports: Section Endocrine Surgical History: Reports: Thyroid Biopsy Neurological Surgical History: Reports: None Musculoskeletal Surgical History: Reports: Carpal Tunnel Social & Family History - Family History Family Medical History: No Pertinent Family History - Tobacco Use Tobacco Use Status *Q: Never Tobacco User Second Hand Smoke Exposure: No - Caffeine Use Caffeine Use: Reports: Coffee, Soda - Recreational Drug Use Recreational Drug Use: No - Living Situation & Occupation Living situation: Reports: , with Family Occupation: Employed ED ROS GENERAL - Review of Systems Review Of Systems: Comprehensive ROS is negative, except as noted in HPI. ED EXAM, GENERAL - Physical Exam Exam: See Below Exam Limited By: No Limitations General Appearance: Alert, Anxious Eye Exam: Bilateral Eye: EOMI Ears: Normal External Exam, Hearing Grossly Normal Nose: Normal Inspection Throat/Mouth: Normal Voice, No Airway Compromise Head: Atraumatic, Normocephalic Neck: Tender Lateral (anterior left), Thyromegaly (left mass) Respiratory/Chest: No Respiratory Distress, Lungs Clear, Normal Breath Sounds Cardiovascular: Normal Peripheral Pulses, Regular Rate, Rhythm GI/Abdominal: Normal Bowel Sounds, Soft Extremities: Joint Swelling (mild bilateral wrist, no gross deformity, no bruising , good ROM slight greater swelling left radial ) Neurological: Alert, Oriented, Normal Cognition Psychiatric: Anxious Skin Exam: Warm, Dry, Intact, Normal Color ED GENERAL MEDICAL PROCEDURES - Splinting Right Upper Extremity Splint Site: right wrist Pre-procedure NV status: Normal Post-procedure NV status: Normal Splint Type: Pre-Fabricated Splint Material: Velcro Splint Design: [employer] Applied & Form Fitted By: Nurse Provider Post-Splint Application NV Check: NV Status Normal Complications: No Course - Vital Signs Last Recorded V/S: Last Vital Signs Temp 97.3 F 12/11/20 18:36 Pulse 99 12/11/20 18:36 Resp 20 12/11/20 18:36 BP 141/100 H 12/11/20 18:36 Pulse Ox 99 12/11/20 18:36 Departure - Departure Time of Disposition: 21:19 Disposition: Home, Self-Care 01 Condition: Good Clinical Impression: Thyroid nodule greater than or equal to 1.5 cm in diameter incidentally noted on imaging study Right wrist fracture Qualifiers: Encounter type: initial encounter Fracture type: closed Qualified Code(s): S62.101A - Fracture of unspecified carpal bone, right wrist, initial encounter for closed fracture Left wrist sprain Qualifiers: Encounter type: initial encounter Qualified Code(s): S63.502A - Unspecified sprain of left wrist, initial encounter - Discharge Information *PRESCRIPTION DRUG MONITORING PROGRAM REVIEWED*: No *COPY OF PRESCRIPTION DRUG MONITORING REPORT IN PATIENT BILL: No Instructions: Wrist Sprain, Adult Forms: ED Department Discharge Additional Instructions: Use splint right wrist clinic follow up regarding thyroid nodule tylenol 500mg every 4 hours as needed for discomfort Sepsis Event Note (ED) - Evaluation Sepsis Screening Result: No Definite Risk - Focused Exam Vital Signs: Vital Signs Temp Pulse Resp BP Pulse Ox 12/11/20 18:36 97.3 F 99 20 141/100 H 99
== END 2020-12-11 20:25 | disposition home or self-care (01) ==
LOC: DL.ED 18:18
DX: S62.101A Fracture of unspecified carpal bone, right wrist, initial encounter for closed fracture (principal); S63.502A Unspecified sprain of left wrist, initial encounter; E04.1 Nontoxic single thyroid nodule; I10 Essential (primary) hypertension; I25.10 Atherosclerotic heart disease of native coronary artery without angina pectoris; J45.909 Unspecified asthma, uncomplicated; K21.9 Gastro-esophageal reflux disease without esophagitis; M06.9 Rheumatoid arthritis, unspecified; E10.40 Type 1 diabetes mellitus with diabetic neuropathy, unspecified; E05.90 Thyrotoxicosis, unspecified without thyrotoxic crisis or storm; Z88.0 Allergy status to penicillin; Z88.5 Allergy status to narcotic agent; Z88.6 Allergy status to analgesic agent; Z79.82 Long term (current) use of aspirin; Z79.84 Long term (current) use of oral hypoglycemic drugs; Z79.899 Other long term (current) drug therapy; W11.XXXA Fall on and from ladder, initial encounter
CPT/HCPCS: 70490; 73110-50; 99284-25

== ENCOUNTER 2022-02-13 13:26 | Emergency (ER) | payer MEDICAID ==
[2022-02-13] MEDS ORDERED: Lidocaine 5% Oint 35.44 GM Tube TOP ONE (13:48)
[2022-02-13] MEDS ORDERED: Gabapentin 300 MG Cap PO ONE (13:49)
[2022-02-13] MEDS ORDERED: Dexamethasone 4 MG Tab PO ONE (13:49)
[2022-02-13] MEDS ORDERED: traMADol 50 MG Tab PO ONE (13:57)
== END 2022-02-13 14:10 | disposition home or self-care (01) ==
LOC: DL.ED 13:26
DX: B02.9 Zoster without complications (principal); I25.10 Atherosclerotic heart disease of native coronary artery without angina pectoris; I10 Essential (primary) hypertension; K21.9 Gastro-esophageal reflux disease without esophagitis; E10.40 Type 1 diabetes mellitus with diabetic neuropathy, unspecified; Z88.0 Allergy status to penicillin; Z88.5 Allergy status to narcotic agent; Z88.8 Allergy status to other drugs, medicaments and biological substances; Z79.899 Other long term (current) drug therapy; Z79.82 Long term (current) use of aspirin
CPT/HCPCS: 99282; 99283; A9270-GY; J8540

== ENCOUNTER 2022-03-22 23:17 | Emergency (ER) | payer OTHER, MEDICAID ==
[2022-03-22] MEDS: Iopamidol 612 MG/ML 100 ML Bottle IVPUSH ONE (23:31)
[2022-03-23 00:11] LABS: ANION GAP 12.5 mEq/L (7-13); CHLORIDE,CL 110 mmol/L (98-107); SODIUM,NA 146 mmol/L (136-145)
[2022-03-23 00:12] LABS: AMPHETAMINES,URINE NEGATIVE (NEGATIVE); BARBITURATES,URINE NEGATIVE (NEGATIVE); BENZODIAZEPINE,URINE NEGATIVE (NEGATIVE); MDMA (ECSTASY), URINE NEGATIVE (NEGATIVE); METHADONE,URINE NEGATIVE (NEGATIVE); METHAMPHETAMINES,URINE NEGATIVE (NEGATIVE); OPIATES,URINE NEGATIVE (NEGATIVE); OXYCODONE,URINE NEGATIVE (NEGATIVE); PHENCYCLIDINE,URINE NEGATIVE (NEGATIVE); TCA,URINE NEGATIVE (NEGATIVE)
[2022-03-23 00:15] LABS: ESTIMATED GFR 88 mL/min (>=60)
== END 2022-03-23 00:59 ==
LOC: DL.ED 23:17
DX: S22.41XA Multiple fractures of ribs, right side, initial encounter for closed fracture (principal); S32.029A Unspecified fracture of second lumbar vertebra, initial encounter for closed fracture; S01.81XA Laceration without foreign body of other part of head, initial encounter; I62.00 Nontraumatic subdural hemorrhage, unspecified; F10.929 Alcohol use, unspecified with intoxication, unspecified; J45.909 Unspecified asthma, uncomplicated; I10 Essential (primary) hypertension; I25.10 Atherosclerotic heart disease of native coronary artery without angina pectoris; E10.9 Type 1 diabetes mellitus without complications; E05.90 Thyrotoxicosis, unspecified without thyrotoxic crisis or storm; K21.9 Gastro-esophageal reflux disease without esophagitis; Z88.0 Allergy status to penicillin; Z88.5 Allergy status to narcotic agent; Z88.6 Allergy status to analgesic agent; Z79.84 Long term (current) use of oral hypoglycemic drugs; Z79.82 Long term (current) use of aspirin; Z79.899 Other long term (current) drug therapy; V49.40XA Driver injured in collision with unspecified motor vehicles in traffic accident, initial encounter
CPT/HCPCS: 36415; 70450; 71260; 72125; 72128; 72131; 74177; 80053; 80305; 80307; 81003; 82150; 83605; 83690; 84484; 85025; 85610; 86850; 86900; 86901; 99285; Q9967

== ENCOUNTER 2023-11-13 07:45 | Emergency (ER) | payer MEDICAID, OTHER ==
[2023-11-13 08:14] LABS: BASOPHILS PERCENT AUTO 0.2 % (0.0-1.0); EOSINOPHILS PERCENT AUTO 1.4 % (1.0-3.0); HEMATOCRIT 31.9 % (37.0-47.0); HEMOGLOBIN 9.8 g/dL (12.0-16.0); LYMPHOCYTES PERCENT AUTO 12.7 % (20.5-50.1); MEAN CORPUSCULAR HEMOGLOBIN 26.1 pg (27.0-34.0); MEAN CORPUSCULAR HGB CONC 30.7 g/dL (33.0-35.0); MEAN CORPUSCULAR VOLUME 85.1 fL (80-100); MONOCYTES PERCENT AUTO 7.1 % (2-8); NEUTROPHILS PERCENT AUTO 78.6 % (42.2-75.2); PLATELET COUNT,PLT 219 10^3/uL (150-450); RED BLOOD CELL COUNT 3.75 10^6/uL (4.2-5.4); WHITE BLOOD CELL COUNT,WBC 11.5 10^3/uL (5.0-10.0)
[2023-11-13] MEDS: Albuterol/Ipratropium 3.0-0.5 MG/3 ML Neb Soln NEB ONE ×2 (08:17→11:09)
[2023-11-13] MEDS: Sodium Chloride 0.9% 1,000 ML IV ONE ×2 (08:19→11:21)
[2023-11-13] MEDS: Ondansetron 4 MG/2 ML SDV IV ONE (08:19)
[2023-11-13] MEDS: methylPREDNISolone Sodium Succinate 125 MG/2 ML SDV IVPUSH ONE (08:19)
[2023-11-13 08:25] LABS: ALBUMIN 3.2 g/dL (3.4-5.0); ANION GAP 17.4 mEq/L (7-13); BILIRUBIN TOTAL 0.6 mg/dL (0.2-1.0); BUN/CREATININE RATIO 20.2 (No establ ref range); CALCIUM 8.7 mg/dL (8.5-10.1); CREATININE 1.04 mg/dL (0.55-1.02); EST CRCL DRUG DOSING (CG) 68.31 mL/min; POTASSIUM,K 3.4 mmol/L (3.5-5.1); PROTEIN TOTAL,TP 7.9 g/dL (6.4-8.2)
[2023-11-13 08:26] LABS: A/G RATIO 0.68
[2023-11-13 08:28] LABS: LACTIC ACID 0.9 mmol/L (0.4-2.0)
[2023-11-13] MEDS: HYDROmorphone 0.5 MG/0.5 ML Syringe IVPUSH ONE (08:59)
[2023-11-13] MEDS: Iopamidol 755 Mg/ML 100 ML Bottle IVPUSH ONE (09:08)
[2023-11-13 09:09] LABS: APPEARANCE,URINE CLEAR (CLEAR); BILIRUBIN,URINE SMALL (NEGATIVE); COLOR,URINE YELLOW (YELLOW); GLUCOSE,URINE NEGATIVE (NEGATIVE); KETONES,URINE 15 (NEGATIVE); LEUKOCYTE ESTERASE,URINE NEGATIVE (NEGATIVE); NITRITE,URINE NEGATIVE (NEGATIVE); OCCULT BLOOD,URINE LARGE (NEGATIVE); PH,URINE 5.5 (5.0-9.0); PROTEIN,URINE 100 (NEGATIVE); UROBILINOGEN,URINE 0.2 mg/dL (0.2-1.0)
[2023-11-13 09:22] LABS: BACTERIA,URINE FEW /HPF (0-FEW/HPF); EPITHELIAL CELLS,URINE FEW /HPF (NOT SEEN); MUCUS,URINE RARE /LPF (NOT SEEN); RBC,URINE 20-30 /HPF (0-5); WBC,URINE 0-5 /HPF (0-5/HPF)
[2023-11-13] MEDS: Cefepime 2 GM Vial IVPUSH ONE (11:09)
[2023-11-13] MEDS: Azithromycin 500 MG in Sodium Chloride 0.9% 250 ML IV ONE (11:09)
[2023-11-13] MEDS: Potassium Chloride 10% 20 MEQ/15 ML Soln 15 ML UD Cup ONE (12:00)
[2023-11-14] MEDS ORDERED: Potassium Chloride 10% 20 MEQ/15 ML Soln 15 ML UD Cup PO ONE (10:59)
== END 2023-11-13 13:01 | disposition home or self-care (01) ==
LOC: DL.ED 07:45
DX: J45.41 Moderate persistent asthma with (acute) exacerbation (principal); J18.9 Pneumonia, unspecified organism; R31.9 Hematuria, unspecified; I10 Essential (primary) hypertension; E86.0 Dehydration; E87.6 Hypokalemia; I25.10 Atherosclerotic heart disease of native coronary artery without angina pectoris; K21.9 Gastro-esophageal reflux disease without esophagitis; E10.40 Type 1 diabetes mellitus with diabetic neuropathy, unspecified; Z85.850 Personal history of malignant neoplasm of thyroid; Z90.49 Acquired absence of other specified parts of digestive tract; Z79.84 Long term (current) use of oral hypoglycemic drugs; Z79.82 Long term (current) use of aspirin; Z79.899 Other long term (current) drug therapy; Z88.0 Allergy status to penicillin; Z88.5 Allergy status to narcotic agent; Z88.6 Allergy status to analgesic agent
CPT/HCPCS: 36415; 70491; 71275; 80053; 81001; 83605; 85025; 87040; 87635; 87804; 94640; 96361; 96365; 96375; 99285; A9270; J0456; J0692; J1170; J2405; J2919; J7030; J7050; Q9967; J7620-GY; U0002